=== PATIENT | male | born 1975 ===

== ENCOUNTER 2023-10-28 07:23 | Outpatient (REF) | payer OTHER, SELFPAY ==
--- NOTE | ~2023-10-28 | XR_ITS ---
EXAMINATION: XR PELVIS CLINICAL INFORMATION: Hip pain COMPARISON: None available. TECHNIQUE: AP view of the pelvis. FINDINGS: Upper pelvis is not included. Visualized SI joints within normal limits. Symmetrically appearing superior pubic rami. No acute fracture. Mild left hip joint narrowing with small calcification lateral to the left acetabulum. Advanced right hip joint narrowing sclerosis. Hypertrophic bony changes right greater trochanter. Partial visualization right intramedullary josephine with stabilizing proximal screws. Right hemipelvic phlebolith. XR/XR pelvis 1-2V IMPRESSION: Upper pelvis not visualized. No acute bony pathology. Partial visualization right femoral ORIF.
== END 2023-10-28 07:24 | disposition home or self-care (01) ==
LOC: HO.HOSX 07:23
PROVIDERS: Visit Provider Orthopaedic Surgery
DX: M16.51 Unilateral post-traumatic osteoarthritis, right hip (principal); M17.12 Unilateral primary osteoarthritis, left knee
CPT/HCPCS: 72170; 99202

== ENCOUNTER 2023-10-28 11:07 | Outpatient (AMB) | payer OTHER, SELFPAY ==
--- NOTE | 2023-10-28 11:10 | A.OFFVIS_ITS ---
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 Patient reports that he is havign pain on the lateral aspect and deep in the groin. He broke his femur in 2010 and has IMN done in [place], he bend the josephine in 2010 and had revision done with [facility]. Left knee has been bothersome for many years now, he has decreased mobility and concerns of it bowing. He plays hockey 2-3 times a week, this is aggravating the hip and the knee. He has been working with physical therapy which has improved his symptoms. 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 He complains of pain in his right hip, both the lateral aspect & deep groin. He says this has been present for some time. He also complains of left knee pain, and limited mobility. He is active and plays hockey 2-3x weekly, which aggravates his symptoms. He finds some relief from PT. He has a hx of a right femur IMN in 2010, in [place]. This was followed by a revision done at [facility]. [facility] Medical History (Updated 10/31/23 @ 07:57 by Nikhil Madrigal MD) Localized osteoarthritis of left knee Surgical History (Updated 10/28/23 @ 11:29 by Harper Velázquez CMA) Femur fracture, right Social History (Updated 10/28/23 @ 11:20 by Harper Velázquez CMA) Current occupational status: employed Current occupation: [employer] Review of Systems Const All systems reviewed & are unremarkable except as noted in HPI and below Physical Exam Vital Signs: BMI result Body Mass Index 31.6 Const General: no acute distress, alert and awake Orientation/consciousness: patient oriented x3 HEENT Head: Yes normocephalic and Yes atraumatic Eyes EOM: EOMs intact bilaterally Resp Effort & Inspection: normal respiratory effort and able to speak in complete sentences Cardio Jugular venous distension: no JVD Skin General skin exam: turgor normal Rashes: no rashes Neuro General: patient oriented x3 Extrem Other: + impingement right hip mild Trendelenberg gait Psych Appearance: grossly normal Affect: normal affect Attitude: cooperative Results Reviewed Results Reviewed: I personally reviewed relevant radiographs. 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 MRI ordered for hip and discussed options including hardware removal and arthroplasty. Will see him when he returns from [place] for MRI (2) Localized osteoarthritis of left knee: Code(s): M17.12 - Unilateral primary osteoarthritis, left knee Plan: Left knee OA that is stiff but pain is tolerable. May consider PRP when returns from [place]. Plan Prepared for Nikhil Madrigal MD by Cristi Qureshi, medical radiation dosimetrist, on 10/28/23 at 11:24 AM, EST. Orders: Orders XR pelvis 1-2V 10/28/23 M25.559 - Pain in unspecified hip Coding Level of Care Code Est Pt Level 4 (74085) Diagnoses Post-traumatic osteoarthritis of right hip M16.51 Localized osteoarthritis of left knee M17.12
[2023-10-28 11:15] VITALS: BMI 31.6
== END 2023-10-28 11:50 | disposition home or self-care (01) ==
PROVIDERS: PCP Family Medicine; Visit Provider Orthopaedic Surgery
DX: M16.51 Unilateral post-traumatic osteoarthritis, right hip (principal); M17.12 Unilateral primary osteoarthritis, left knee
CPT/HCPCS: 99203

== ENCOUNTER 2024-01-03 09:28 | Outpatient (AMB) | payer OTHER, SELFPAY ==
--- NOTE | 2024-01-03 09:34 | MHC.OFFVIS ---
Intake Intake Visit Reasons: OV, L knee cortisone injection Intake Note: Janak is a 48 year old male who presents today for a follow up of his left knee OA, he would like to have a cortisone injection in the left knee today. 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 His left knee is not really bothering him at the moment. He is just returning from winter in [place]. He describes pain in his right hip and groin. He plays hockey several times a week and this is tolerable in moderation but easily becomes intolerable. He has in intra medullary josephine in his right femur. [facility] Medical History (Updated 10/31/23 @ 07:57 by Nikhil Madrigal MD) Localized osteoarthritis of left knee Surgical History (Updated 10/28/23 @ 11:29 by Harper Velázquez CMA) Femur fracture, right Social History (Updated 10/28/23 @ 11:20 by Harper Velázquez CMA) Current occupational status: employed Current occupation: [employer] Physical Exam Extrem Other: varus left knee iwth loss of terminal extension but no pain and no effusion Right hip with + impingement test Results Reviewed Results Reviewed: right hip OA with IM nail in place with bony overgrowth over greater trochanter Assessment & Plan Assessment & Plan (1) Post-traumatic osteoarthritis of right hip: Code(s): M16.51 - Unilateral post-traumatic osteoarthritis, right hip Plan: We discussed options. We elected to proceed forward with PRP right hip. We discussed this in detail and will proceed forward and then discuss removal of hardware. I explained the PRP procedure and the I discussed the risks benefits and alternatives including but not limited to the risk of pain, infection, incomplete symptom resolution. He expressed understanding. (2) Localized osteoarthritis of left knee: Code(s): M17.12 - Unilateral primary osteoarthritis, left knee Plan: At this time his left knee is minimally symptomatic. We elected to hold ion injections for now and will focus on hip Coding Level of Care Code Est Pt Level 4 (47680) Diagnoses Post-traumatic osteoarthritis of right hip M16.51 Localized osteoarthritis of left knee M17.12
== END 2024-01-03 11:27 | disposition home or self-care (01) ==
PROVIDERS: PCP Family Medicine; Visit Provider Orthopaedic Surgery
DX: M16.51 Unilateral post-traumatic osteoarthritis, right hip (principal); M17.12 Unilateral primary osteoarthritis, left knee
CPT/HCPCS: 99214

== ENCOUNTER → 2024-01-03 09:28 | Outpatient (BNVA) | payer OTHER, SELFPAY | PROVIDERS: PCP Family Medicine; Visit Provider Orthopaedic Surgery | DX: M17.12 Unilateral primary osteoarthritis, left knee (principal); M16.51 Unilateral post-traumatic osteoarthritis, right hip | CPT/HCPCS: 99212; J0665; J1100 ==

== ENCOUNTER 2024-01-13 09:01 | Outpatient (AMB) | payer OTHER, SELFPAY ==
--- NOTE | 2024-01-13 09:03 | A.OFFVIS_ITS ---
Intake Vital Signs 01/13/24 09:09 Height 5 ft 10 in Weight 220 lb BMI 31.6 Intake Visit Reasons: OV, Injection of left knee cortisone Intake Note: Janak is a 48 year old male who presents today for a follow up of his left knee OA, he would like to have a cortisone injection in the left knee today. Patient reports mild pain with prolonged ambulation. Allergies No Known Allergies Allergy (Verified 01/13/24 09:09) HPI OV, Injection of left knee cortisone HPI Details Janak is a 48 year old male who presents today for a follow up of his left knee OA, he would like to have a cortisone injection in the left knee today. Patient reports mild pain with prolonged ambulation. [facility] Medical History Localized osteoarthritis of left knee Surgical History Femur fracture, right Social History Current occupational status: employed Current occupation: [employer] Physical Exam Vital Signs: BMI result Body Mass Index 31.6 Extrem Other: Left knee with TTP medial joint line Restricted flexion at baseline Office Procedures Joint Injection/Drain Joint Injection/Drain Details: Injected 1 mL of Decadron and 3 mL 1% lidocaine and 3 mL of 0.25% Marcaine. Site was prepped using aseptic technique. Patient tolerated the procedure well. Primary Site: left knee Approach Used: anterolateral Coding - Large joint Procedure code (CPT) selection complete Assessment & Plan Assessment & Plan (1) Localized osteoarthritis of left knee: Code(s): M17.12 - Unilateral primary osteoarthritis, left knee Plan: Left knee OA Injected left knee Coding Level of Care Code Est Pt Level 3 (91606) Diagnoses Localized osteoarthritis of left knee M17.12 CPT Codes Coding - Large joint: 08192 - Large joint ([id number])
[2024-01-13 09:09] VITALS: BMI 31.6
== END 2024-01-13 10:06 | disposition home or self-care (01) ==
PROVIDERS: PCP Family Medicine; Visit Provider Orthopaedic Surgery
DX: M17.12 Unilateral primary osteoarthritis, left knee (principal)
CPT/HCPCS: 20610; 99213

== ENCOUNTER → 2024-01-13 09:01 | Outpatient (BNVA) | payer OTHER, SELFPAY | PROVIDERS: PCP Family Medicine; Visit Provider Orthopaedic Surgery | DX: M17.12 Unilateral primary osteoarthritis, left knee (principal) | CPT/HCPCS: 20610; 99212; J0665; J1100 ==

== ENCOUNTER 2024-01-17 11:44 | Outpatient (AMB) | payer SELFPAY ==
--- NOTE | 2024-01-17 11:46 | A.OFFVIS_ITS ---
Intake Intake Visit Reasons: PRP Right hip with filter Intake Note: This is a 48 year old male who presents for a PRP injection on the right hip. Allergies No Known Allergies Allergy (Verified 01/17/24 11:47) Medication List - Last Reconciled 01/17/24 by Sri Iraheta RN meloxicam 15 mg PO DAILY tamoxifen 20 mg PO DAILY testosterone cypionate (Depo-Testosterone) 100 mg IM Q2W [facility] Medical History Localized osteoarthritis of left knee Surgical History Femur fracture, right Social History Current occupational status: employed Current occupation: [employer] Office Procedures Platelet Rich Plasma Injection PRP Joint Injection Primary Site: other (right hip) XCELL Platelet Plasma - 0232T 60 mL All charges added?: Procedure code (CPT) selection complete Assessment & Plan Assessment & Plan (1) Post-traumatic osteoarthritis of right hip: Code(s): M16.51 - Unilateral post-traumatic osteoarthritis, right hip Plan: Right hip injection Medications: New pregabalin (Lyrica) 75 mg PO BEDTIME 30 days 30 caps 0RF Coding Level of Care Code Procedure Only Diagnoses Post-traumatic osteoarthritis of right hip M16.51 CPT Codes XCELL Kit 60mL ([id number]) XCELL Kit 120mL ([id number])
== END 2024-01-17 13:24 | disposition home or self-care (01) ==
LOC: HO.HOSPRC 11:44
PROVIDERS: PCP Family Medicine; Visit Provider Orthopaedic Surgery
DX: M16.51 Unilateral post-traumatic osteoarthritis, right hip (principal)
CPT/HCPCS: 0232T

== ENCOUNTER → 2024-01-17 11:44 | Outpatient (BNVA) | payer OTHER, SELFPAY | PROVIDERS: PCP Family Medicine; Visit Provider Orthopaedic Surgery ==

== ENCOUNTER 2024-02-14 12:51 | Outpatient (AMB) | payer OTHER, SELFPAY ==
--- NOTE | 2024-02-14 12:51 | MHC.OFFVIS ---
Vital Signs 02/14/24 12:53 Height 5 ft 10 in Weight 220 lb BMI 31.6 Intake Visit Reasons: OV-F/U PRP Right hip on 01/17/24-Discuss surgery Intake Note: Janak is a 48 year old male who presents today for a follow up of his right hip PRP 01/17/24, he reports that he did not have adequate releief and he would like to discuss surgery. Allergies No Known Allergies Allergy (Verified 02/14/24 12:53) HPI HPI OV-F/U PRP Right hip on 01/17/24-Discuss surgery: Details: Irvin is a 48-year-old gentleman with severe right hip osteoarthritis. He also has an IM nail in his right femur after a fracture many years ago. He is active and would like to continue playing hockey but can not because of pain. He underwent a PRP injection approximately 6 weeks ago which was not particularly helpful. [facility] Medical History Localized osteoarthritis of left knee Surgical History Femur fracture, right Social History Current occupational status: employed Current occupation: [employer] Physical Exam Vital Signs: BMI result Body Mass Index 31.6 Const General: cooperative, healthy appearing, no acute distress, well developed and alert HEENT Head: Yes normal to inspection, Yes normocephalic and Yes atraumatic Mouth: moist mucous membranes Eyes General: appearance normal, both eyes and all related structures EOM: EOMs intact bilaterally Chest Other: no audible wheezing. Resp Other: No audible wheezing Effort & Inspection: normal respiratory effort Back/Spine/Pelvis Cervical Spine: normal cervical lordosis Skin General skin exam: no rashes or lesions noted Neuro General: no focal motor deficits Extrem Other: Incision clean dry and intact lateral right proximal and distal femur. Minimal internal rotation and positive impingement test. Psych Appearance: grossly normal and well kempt Mental Status: mental status grossly normal Speech and movement: Normal speech and movement present Affect: normal affect Attitude: cooperative Results Reviewed Results Reviewed: I personally reviewed relevant radiographs. Right hip OA There is a right femoral intramedullary nail likely piriformis entry recon nail in appropriate position with no hardware complications. Assessment & Plan Assessment & Plan (1) Post-traumatic osteoarthritis of right hip: Code(s): M16.51 - Unilateral post-traumatic osteoarthritis, right hip Category: Medical Plan: In order to treat his hip we need to remove the hardware 1st. We discussed this and the timing. (2) Retained orthopedic hardware: Code(s): Z96.9 - Presence of functional implant, unspecified Category: Medical Plan: I recommend removal of hardware. I discussed the risks, benefits and alternatives including, but not limited to, the risk fracture, bleeding, pain, infection. This josephine appears extremely well fixed and he is a very active gentleman so I do think that there may be some difficulty removing the nail especially the distal screw and the proximal screws given the propensity of stripping. I would like to get his op note from surgery before we undergo hardware removal. I explained this to the patient he understands and we will proceed forward accordingly. Coding Level of Care Code Est Pt Level 4 (73706) Diagnoses Post-traumatic osteoarthritis of right hip M16.51 Retained orthopedic hardware Z96.9
[2024-02-14 12:53] VITALS: BMI 31.6
== END 2024-02-14 13:41 | disposition home or self-care (01) ==
PROVIDERS: PCP Family Medicine; Visit Provider Orthopaedic Surgery
DX: M16.51 Unilateral post-traumatic osteoarthritis, right hip (principal); Z96.9 Presence of functional implant, unspecified; Z96.641 Presence of right artificial hip joint
CPT/HCPCS: 99214

== ENCOUNTER → 2024-02-14 12:51 | Outpatient (BNVA) | payer OTHER, SELFPAY | PROVIDERS: PCP Family Medicine; Visit Provider Orthopaedic Surgery | DX: M16.51 Unilateral post-traumatic osteoarthritis, right hip (principal); T14.90XS Injury, unspecified, sequela; Z96.9 Presence of functional implant, unspecified | CPT/HCPCS: 99212 ==

== ENCOUNTER 2024-02-21 10:32 | Outpatient (AMB) | payer OTHER, SELFPAY ==
--- NOTE | 2024-02-21 10:33 | MHC.OFFVIS ---
Intake Visit Reasons: TELE Intake Note: Janak is a 48 year old male who presents today VIA Telephone visit to discuss interventions of his hip. Allergies No Known Allergies Allergy (Verified 02/14/24 12:53) HPI HPI TELE: Details: Irvin is doing very well and has no pain. Given his lack of pain at this time he would like to postpone his removal of hardware surgery. [facility] Medical History Localized osteoarthritis of left knee Surgical History Femur fracture, right Social History Current occupational status: employed Current occupation: [employer] Telehealth Telehealth Platform: Telephone Location of provider rendering services: practice address Location of patient: address on file Patient Identification confirmed using: Name, : Yes Telehealth method: voice only Patient informed of any privacy concerns related to visit: Yes Minutes spent on Phone/Video with Pt.: 10 Assessment & Plan Assessment & Plan (1) Retained orthopedic hardware: Code(s): Z96.9 - Presence of functional implant, unspecified Category: Medical Plan: We will defer removal of hardware until a better time and when he is having more pain. We discussed this. Coding Level of Care Code Tele Est Pt Level 3 (92716) Diagnoses Retained orthopedic hardware Z96.9
== END 2024-02-21 10:34 | disposition home or self-care (01) ==
LOC: HO.HOS 10:33
PROVIDERS: PCP Family Medicine; Visit Provider Orthopaedic Surgery
DX: Z96.9 Presence of functional implant, unspecified (principal)
CPT/HCPCS: 99213

== ENCOUNTER → 2024-02-21 10:32 | Outpatient (BNVA) | payer OTHER, SELFPAY | PROVIDERS: PCP Family Medicine; Visit Provider Orthopaedic Surgery ==

== ENCOUNTER 2024-05-21 07:18 | Outpatient (REF) | payer OTHER, SELFPAY | END 2024-05-21 07:19 | disposition home or self-care (01) | LOC: CF 07:18 | PROVIDERS: Visit Provider Internal Medicine | DX: Z13.89 Encounter for screening for other disorder (principal) ==

== ENCOUNTER 2024-05-28 08:02 | Outpatient (REF) | payer OTHER, SELFPAY | END 2024-05-28 08:03 | disposition home or self-care (01) | LOC: CF 08:02 | PROVIDERS: Visit Provider Internal Medicine | DX: Z13.89 Encounter for screening for other disorder (principal) ==

== ENCOUNTER 2024-05-28 13:05 | Outpatient (AMB) | payer OTHER, SELFPAY ==
--- NOTE | 2024-05-28 13:01 | MHC.OFFVIS ---
Vital Signs 05/28/24 14:07 05/28/24 14:08 Height 5 ft 10 in 5 ft 10 in Weight 220 lb 220 lb BMI 31.6 31.6 BP 150/60 H 138/68 Blood Pressure Location Lt brachial Lt brachial Position Sitting Sitting Respiration 16 16 Pulse 101 H 86 Pulse Source Pulse Oximeter Pulse Oximeter Pulse Oximetry (%) 98 96 Oxygen Delivery Method Room Air Room Air Comment pre-op post-op Intake Visit Reasons: Right hip PRP Allergies No Known Allergies Allergy (Verified 05/28/24 14:08) HPI HPI Right hip PRP: Details: Patient presents for scheduled procedure. Denies any recent cough, cold, infection, fever or other significant changes in medical history since last office visit. [facility] Medical History Localized osteoarthritis of left knee Surgical History Femur fracture, right Social History Current occupational status: employed Current occupation: [employer] Office Procedures Platelet Rich Plasma Injection PRP Joint Injection After informed written consent was obtained, pre-procedure oxygen saturation, heart rate, and blood pressure were recorded. An 18 gauge butterfly needle was used to obtain 51 mL of whole blood from the right antecubital fossa. This was then mixed with 9 mL anticoagulant citrate dextrose solution. The 60 mL mixture was counter balanced to within 1 g and spun at 3500 rpm for 10 minutes. Platelet poor plasma was then drawn using a bench top press model. 6 mL of slightly leukocyte rich PRP was isolated in a 10 cc syringe. Primary Site: other (Right hip) Prep: site was prepped using sterile technique Approach Used: anterior (Ultrasound-guided) Procedure: The patient tolerated the procedure well XCELL Platelet Plasma - 0232T 60 mL All charges added?: Procedure code (CPT) selection complete Assessment & Plan Assessment & Plan (1) Post-traumatic osteoarthritis of right hip: Code(s): M16.51 - Unilateral post-traumatic osteoarthritis, right hip Category: Medical Plan Patient is status post right PRP injection under ultrasound guidance. Patient tolerated procedure well and was discharged home in stable condition with discharge instructions. All questions were answered. We will follow-up via telephone or in clinic to assess response to therapy. A follow-up appointment was made during today's visit. Orders: Orders AMB Platelet Rich Plasma (PRP) Injection Today M16.51 - Unilateral post-traumatic osteoarthritis, right hip Coding Level of Care Code Procedure Only Diagnoses Post-traumatic osteoarthritis of right hip M16.51 CPT Codes XCELL Kit 60mL ([id number])
[2024-05-28 14:07] VITALS: BP 150/60; PULSE 101; RESP 16; O2SAT 98; BMI 31.6
[2024-05-28 14:08] VITALS: BP 138/68; PULSE 86; RESP 16; O2SAT 96; BMI 31.6
== END 2024-05-28 14:24 | disposition home or self-care (01) ==
LOC: HO.PMCPRC 13:05
PROVIDERS: PCP Family Medicine; Visit Provider Internal Medicine
DX: M16.51 Unilateral post-traumatic osteoarthritis, right hip (principal)
CPT/HCPCS: 0232T

== ENCOUNTER 2024-07-08 16:32 | Outpatient (REF) | payer OTHER, SELFPAY ==
--- NOTE | ~2024-07-08 | MR_ITS ---
EXAMINATION: MR HIP WITHOUT CONTRAST, RIGHT CLINICAL INFORMATION: Internal derangement. Right hip pain. COMPARISON: Radiographs dated 07/08/2024. TECHNIQUE: MRI of the right hip was obtained using routine sequences on a high-field strength magnet. FINDINGS: BONES AND ARTICULAR CARTILAGE: Severe osteoarthritis in the right hip is characterized by complete articular cartilage loss at the cephalad aspect of the femoral head and at the acetabular roof, associated with articular cortical remodeling, articular cortical sclerosis, subchondral edema, subchondral cystic change, and marginal osteophytes. The acetabular labrum is degenerated and torn from the roof anteriorly and superolaterally. No avascular necrosis. Hxuc-ds-xqayelsj osteoarthritis in the left hip and pubic symphysis. SI joints appear relatively well preserved. Mild degenerative disc disease in the lumbar spine. Antegrade intramedullary nail and 2 interlocking screws are partially seen within the proximal femur. There is mild osseous fragmentation around the tip of the greater trochanter with adjacent scar tissue. No acute fractures. MUSCLES AND TENDONS: There is a chronic partial tear of the anterior fibers of the gluteus medius tendon near the trochanteric insertion, likely related to the placement of the intramedullary nail. There is no significant muscle atrophy or fatty replacement. Hamstring tendons are intact. The psoas are unremarkable. Chronic core muscle injuries are evident at the pubic symphysis attachment with a chronic high-grade partial tear of the right abductor longus tendon origin. The right rectus abdominis aponeurosis is also likely partially torn as it appears confluent with the stripped, displaced right adductor longus aponeurosis. A similar injury is suspected at the left adductor longus and rectus abdominis muscles with partial ossification of the displaced adductor longus tendon. JOINT FLUID AND BURSAE: Trace joint effusion. No bursitis. LIGAMENTUM TERES: Intact. INTRAPELVIC SOFT TISSUES: Sigmoid diverticulosis. No acute diverticulitis. No acute intrapelvic abnormalities. No adenopathy. MR/MR hip RT wo con IMPRESSION: 1. Severe osteoarthritis in the right hip. 2. Bzrb-gp-qbaihifo osteoarthritis in the left hip and pubic symphysis. 3. Chronic partial tears of the bilateral adductor longus and rectus abdominis aponeuroses at the pubic symphysis, consistent with chronic core muscle injuries. 4. Chronic partial tear of the anterior fibers of the gluteus medius tendon at its insertion related to the femoral intramedullary nail placement. Electronically signed by: Kulwinder Gamboa MD 07/13/2024 11:04 PM EDT RP
== END 2024-07-08 16:33 | disposition home or self-care (01) ==
LOC: HO.MRI 16:32
PROVIDERS: PCP Family Medicine; Visit Provider Orthopaedic Surgery
DX: M16.51 Unilateral post-traumatic osteoarthritis, right hip (principal)
CPT/HCPCS: 73721

== ENCOUNTER 2024-07-22 11:21 | Outpatient (AMB) | payer OTHER, SELFPAY ==
[2024-07-22 11:24] VITALS: BP 143/86; PULSE 99; RESP 15; O2SAT 97; BMI 34.3
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
== END 2024-07-22 11:32 | disposition home or self-care (01) ==
PROVIDERS: PCP Family Medicine; Visit Provider Internal Medicine
DX: M16.51 Unilateral post-traumatic osteoarthritis, right hip (principal)
CPT/HCPCS: 99214

== ENCOUNTER → 2024-07-22 11:21 | Outpatient (BNVA) | payer OTHER, SELFPAY | PROVIDERS: PCP Family Medicine; Visit Provider Internal Medicine | DX: M16.51 Unilateral post-traumatic osteoarthritis, right hip (principal) | CPT/HCPCS: 99212 ==

== ENCOUNTER 2024-08-14 09:10 | Outpatient (AMB) | payer OTHER, SELFPAY ==
--- NOTE | 2024-08-14 09:12 | A.OFFVIS_ITS ---
Vital Signs 08/14/24 09:14 Height 5 ft 10 in Weight 239 lb BMI 34.3 BP 142/96 H Blood Pressure Location Lt brachial Position Sitting Respiration 15 Pulse 101 H Pulse Source Pulse Oximeter Pulse Oximetry (%) 97 Oxygen Delivery Method Room Air Intake Visit Reasons: right hip inj Allergies No Known Allergies Allergy (Verified 08/25/24 07:12) Medication List - Last Reconciled 08/14/24 by Adela Merchant LPN meloxicam 15 mg PO DAILY pregabalin (Lyrica) 75 mg PO BEDTIME 30 days tamoxifen 20 mg PO DAILY testosterone cypionate (Depo-Testosterone) 100 mg IM Q2W HPI HPI right hip inj: Details: 48-year-old male who presents today to the office for a right hip injection. We reached out to Dr. Pitts to discussed intraosseous BMC vs total hip replacement as possible treatment for hip pain. Dr. Pitts is inclined to proceed with hip replacement and deferred intraosseous BMC given the severity of the conditions. He states that his pain has started about a year and half ago. He used to go on biking about two miles a day. Denies any recent cough, cold, infection, fever or other significant changes in medical history since last office visit.? Past procedures 05/28/24: 2nd Right PRP injection under ultrasound guidance: no relief. [facility] Medical History Back pain Arthritis Elevated cholesterol HTN (hypertension) Localized osteoarthritis of left knee Surgical History History of ankle surgery Hx of knee surgery Femur fracture, right Social History Are you a primary healthcare customer service to a significant other at home: No Do you presently have visiting nurse or other home services: No Patient Tobacco Use Status: Never used Tobacco Use of substances other than those prescribed or required for medical reasons: No Have you been hit, kicked, punched, or otherwise hurt by someone within the past year? If so, by whom?: No Are you DNR?: No Advance Directives: No Advance Directives Information Provided: Yes Advance Directives on File: No Recently lost weight without trying: No Eating poorly because of decreased appetite: No Nutrition Risks: No Nutritional Risk Poor oral hygiene: Yes (one crown on front tooth) Current occupational status: employed Current occupation: [employer] Review of Systems Const All systems reviewed & are unremarkable except as noted in HPI and below Physical Exam Vital Signs: Last Vital Signs Pulse 101 H 08/14/24 09:14 Resp 15 08/14/24 09:14 BP 142/96 H 08/14/24 09:14 Pulse Ox 97 08/14/24 09:14 Oxygen Delivery Method Room Air 08/14/24 09:14 BMI result Body Mass Index 34.3 General: Appears afebrile. Alert and oriented. Mood and affect appropriate. Follows and participates in conversation appropriately. Respiratory effort is unlabored. Able to transition from sit to stand unassisted. Ambulates with bilaterally normal heel strike and toe off. Office Procedures AMB Joint Injection/Aspiration Joint Injection/Aspiration Details: Right intra-articular hip injection, US guided Primary Site: other (Right hip) Prep: site was prepped using sterile technique Injected: 10 mg of, Kenalog, with 1 mL of (ropivacaine 0.5%) and in the joint Approach Used: anterolateral Procedure: The patient tolerated the procedure well Coding Details: An ultrasound image of the injection was taken and stored in the permanent record. - Large joint (Right, US guided) Procedure code (CPT) selection complete Results Reviewed Results Reviewed: No imaging is available for review. Assessment & Plan Assessment & Plan (1) Post-traumatic osteoarthritis of right hip: Code(s): M16.51 - Unilateral post-traumatic osteoarthritis, right hip Category: Medical Plan Patient is status post right intraarticular hip injection, US guided. Patient tolerated procedure well and was discharged home in stable condition with discharge instructions.? All questions were answered. Scribed for Dr. Farnsworth by Kin Castillo, hospital medical assistant, on 08/14/2024. I, Dr. Farnsworth, have personally reviewed and agree with the information entered by the scribe. Coding Level of Care Code Est Pt Level 3 (21351) Diagnoses Post-traumatic osteoarthritis of right hip M16.51 CPT Codes Coding - Large joint: 20487 - Large joint ([id number])
[2024-08-14 09:14] VITALS: BP 142/96; PULSE 101; RESP 15; O2SAT 97; BMI 34.3
== END 2024-08-14 09:38 | disposition home or self-care (01) ==
PROVIDERS: PCP Family Medicine; Visit Provider Internal Medicine
DX: M16.51 Unilateral post-traumatic osteoarthritis, right hip (principal)
CPT/HCPCS: 20611

== ENCOUNTER → 2024-08-14 09:10 | Outpatient (BNVA) | payer OTHER, SELFPAY | PROVIDERS: PCP Family Medicine; Visit Provider Internal Medicine | DX: M16.51 Unilateral post-traumatic osteoarthritis, right hip (principal) | CPT/HCPCS: 20611; J2795; J3301 ==

== ENCOUNTER 2024-08-24 14:41 | Outpatient (AMB) | payer OTHER, SELFPAY ==
--- NOTE | 2024-08-24 14:53 | A.OFFVIS_ITS ---
Intake Visit Reasons: Discuss [facility] 08/25/24 Intake Note: Janak is a 48 year old male who presents today for a pre operative appointment to discuss removal of hardware. Allergies No Known Allergies Allergy (Verified 08/25/24 07:12) HPI HPI Discuss [facility] 08/25/24: Details: Irvin has a right IMN in place since 2010 and hip OA. He has been scheduled to undergo removal of hardware. He has groin and hip pain. The hardware needs to be removed in preparation for possible arthroplasty. [facility] Medical History Back pain Arthritis Elevated cholesterol HTN (hypertension) Localized osteoarthritis of left knee Surgical History History of ankle surgery Hx of knee surgery Femur fracture, right Social History Are you a primary home care music therapist to a significant other at home: No Do you presently have visiting nurse or other home services: No Patient Tobacco Use Status: Never used Tobacco Use of substances other than those prescribed or required for medical reasons: No Have you been hit, kicked, punched, or otherwise hurt by someone within the past year? If so, by whom?: No Are you DNR?: No Advance Directives: No Advance Directives Information Provided: Yes Advance Directives on File: No Recently lost weight without trying: No Eating poorly because of decreased appetite: No Nutrition Risks: No Nutritional Risk Poor oral hygiene: Yes (one crown on front tooth) Current occupational status: employed Current occupation: [employer] Physical Exam Const General: cooperative, healthy appearing, no acute distress, well developed and alert HEENT Head: Yes normal to inspection, Yes normocephalic and Yes atraumatic Mouth: moist mucous membranes Eyes General: appearance normal, both eyes and all related structures EOM: EOMs intact bilaterally Chest Other: no audible wheezing. Resp Other: No audible wheezing Effort & Inspection: normal respiratory effort Back/Spine/Pelvis Cervical Spine: normal cervical lordosis Skin General skin exam: no rashes or lesions noted Neuro General: no focal motor deficits Extrem Other: Incision clean dry and intact lateral right proximal and distal femur. Minimal internal rotation and positive impingement test. Psych Appearance: grossly normal and well kempt Mental Status: mental status grossly normal Speech and movement: Normal speech and movement present Affect: normal affect Attitude: cooperative Results Reviewed Results Reviewed: I personally reviewed relevant radiographs. Piriformis hardware in place with one distal and two proximal interlocking screws Assessment & Plan Assessment & Plan (1) Retained orthopedic hardware: Code(s): Z96.9 - Presence of functional implant, unspecified Category: Medical Plan: I recommend removal of hardware right femur. I discussed the risks benefits and alternatives including but not limited to the risk of pain, infection, stiffness, need for further surgery as well as potential medical complications such as blood clots, pulmonary embolism and cardiac complications. (2) Post-traumatic osteoarthritis of right hip: Code(s): M16.51 - Unilateral post-traumatic osteoarthritis, right hip Category: Medical Plan: ISAAC pending GIDEON Coding Level of Care Code Est Pt Level 4 (86061) Diagnoses Retained orthopedic hardware Z96.9 Post-traumatic osteoarthritis of right hip M16.51
== END 2024-08-24 16:08 | disposition home or self-care (01) ==
PROVIDERS: PCP Family Medicine; Visit Provider Orthopaedic Surgery
DX: Z96.9 Presence of functional implant, unspecified (principal); M16.51 Unilateral post-traumatic osteoarthritis, right hip
CPT/HCPCS: 99214

== ENCOUNTER → 2024-08-24 14:41 | Outpatient (BNVA) | payer OTHER, SELFPAY | PROVIDERS: PCP Family Medicine; Visit Provider Orthopaedic Surgery | DX: M16.51 Unilateral post-traumatic osteoarthritis, right hip (principal); Z96.89 Presence of other specified functional implants | CPT/HCPCS: 99212 ==

== ENCOUNTER 2024-08-25 06:57 | Day surgery (SDC) | payer OTHER, SELFPAY ==
[2024-08-20 11:48] VITALS: BMI 33.7
--- NOTE | 2024-08-20 14:57 | P.CONAN_ITS ---
Documented by User: Francia Geiger NP 08/20/24 14:58 HPI - Anesthesia Eval Consult details Narrative: 48yo M for Right Hip Removal Orthopedic Hardware (josephine and screws removal) No CP/SOB with playing hockey PMFSH Active Problems Active Problems: All Active Problems Retained orthopedic hardware (Acute) Post-traumatic osteoarthritis of right hip (Acute) Localized osteoarthritis of left knee (Acute) Past Medical History Medical History Back pain Arthritis Elevated cholesterol HTN (hypertension) Localized osteoarthritis of left knee Surgical History Surgical History History of ankle surgery Hx of knee surgery Femur fracture, right Social History Social History Are you a primary patient care representative to a significant other at home: No Do you presently have visiting nurse or other home services: No Patient Tobacco Use Status: Never used Tobacco Use of substances other than those prescribed or required for medical reasons: No Have you been hit, kicked, punched, or otherwise hurt by someone within the past year? If so, by whom?: No Are you DNR?: No Advance Directives: No Advance Directives Information Provided: Yes Advance Directives on File: No Recently lost weight without trying: No Eating poorly because of decreased appetite: No Nutrition Risks: No Nutritional Risk Poor oral hygiene: Yes (one crown on front tooth) Current occupational status: employed Current occupation: [employer] [place] Allergies Allergy/AdvReac Type Severity Reaction Status Date / Time No Known Allergies Allergy Verified 08/25/24 07:12 Home Medications ?Medication ?Instructions ?Recorded ?Confirmed ?Last Taken ?Type meloxicam 15 mg tablet 15 mg PO DAILY 10/28/23 08/20/24 08/18/24 History tamoxifen 20 mg tablet 20 mg PO DAILY 10/28/23 08/20/24 08/24/24 History testosterone cypionate 200 mg/mL 100 mg IM QWEEK 10/28/23 08/20/24 Unknown History intramuscular oil (Depo-Testosterone) lisinopril 10 1 tab PO DAILY 08/20/24 08/20/24 08/24/24 History mg-hydrochlorothiazide 12.5 mg tablet minoxidil 2.5 mg tablet 2.5 mg PO DAILY 08/20/24 08/20/24 08/24/24 History Exam Height,Weight and Vital Signs: Height 5 ft 10 in Weight 106.594 kg Assessment and Plan Assessment Anesthesia Assessment: Chart Reviewed Documented by User: Madison Montanez MD 08/25/24 09:05 [facility] Past Medical History Medical History Back pain Arthritis Elevated cholesterol HTN (hypertension) Localized osteoarthritis of left knee Family History Family history of problems with anesthesia: No Surgical History Surgical History History of ankle surgery Hx of knee surgery Femur fracture, right History of Problems with Anesthesia: No Social History Social History Are you a primary patient care representative to a significant other at home: No Do you presently have visiting nurse or other home services: No Patient Tobacco Use Status: Never used Tobacco Use of substances other than those prescribed or required for medical reasons: No Have you been hit, kicked, punched, or otherwise hurt by someone within the past year? If so, by whom?: No Are you DNR?: No Advance Directives: No Advance Directives Information Provided: Yes Advance Directives on File: No Recently lost weight without trying: No Eating poorly because of decreased appetite: No Nutrition Risks: No Nutritional Risk Poor oral hygiene: Yes (one crown on front tooth) Current occupational status: employed Current occupation: [employer] [place] Allergies Allergy/AdvReac Type Severity Reaction Status Date / Time No Known Allergies Allergy Verified 08/25/24 07:12 Home Medications ?Medication ?Instructions ?Recorded ?Confirmed ?Last Taken ?Type meloxicam 15 mg tablet 15 mg PO DAILY 10/28/23 08/20/24 08/18/24 History tamoxifen 20 mg tablet 20 mg PO DAILY 10/28/23 08/20/24 08/24/24 History testosterone cypionate 200 mg/mL 100 mg IM QWEEK 10/28/23 08/20/24 Unknown History intramuscular oil (Depo-Testosterone) lisinopril 10 1 tab PO DAILY 08/20/24 08/20/24 08/24/24 History mg-hydrochlorothiazide 12.5 mg tablet minoxidil 2.5 mg tablet 2.5 mg PO DAILY 08/20/24 08/20/24 08/24/24 History Exam Airway Mallampati Class: II TM Dist: >3cm Neck ROM: Full Heart: rrr Lungs: cta Assessment and Plan Assessment Anesthesia Assessment: Anesthesia Plan Discussed Final Anesthetic Review Family History of Problems with Anesthesia: No History of Problems with Anesthesia: No NPO: Yes ASA Class: II (htn) Final Preanesthetic Review: No Changes in Pt Med Stat, Meds/Allgs Chart Reviewed, Consent Obtained/Reviewed and Anes Risks/Benef Reviewed Patient Risk: Low Procedure Risk: Intermediate Anesthetic Plan Anesthetic Plan: GA Disposition: Standard PACU
[2024-08-25] VITALS (16 sets, daily range): BP systolic 114–141; BP diastolic 58–82; PULSE 93–115; RESP 16–18; TEMP 36.2–36.8; O2SAT 89–99; BMI 34.4
[2024-08-25] MEDS: Lactated Ringers 1,000 ML 100 ML IVCONT (07:21)
--- NOTE | 2024-08-25 07:44 | MHC.SHP ---
Pre-Procedural Eval Section A - 24 Hr Update-Section A only Date of Service: 08/25/24 The patient is an INPATIENT: No Changes since office visit: No Cold of Flu in the past 2 weeks, No New Medical Problems, No Changes in Medication and No Patient answered all questions The patient has been examined within 24 hours of the surgical procedure. The History & Physical has been completed within 30 days and I have reviewed it.: Yes Section B - Complete if H&P > 30 days Chief Complaint: Presence of functional implant, unspecified Allergies: Allergies Allergy/AdvReac Type Severity Reaction Status Date / Time No Known Allergies Allergy Verified 08/25/24 07:12 Plan I have reviewed the history and physical and performed a pertinent physical examination on my patient. No changes have occurred unless specified. Time Spent With Patient Time: Total time managing care of this patient today ____ minutes.
--- NOTE | 2024-08-25 13:04 | P.BOP_ITS ---
Brief Operative Note Date of Service: 08/25/24 Pre-op diagnosis: Retained ortho hardware right femur Post-op diagnosis: same Procedure: GIDEON right femur Surgeon: Nikhil Madrigal MD Anesthesia: local Was an Precision Agronomist used for this Procedure?: Yes Precision Agronomist: Mich Logan Estimated blood loss (mL): 200 IV fluids (mL): 1,000 Pathology: none sent Condition: stable Disposition: PACU
[2024-08-25] MEDS: ondansetron HCL 4 MG/2 ML VIAL IVPUSH (15:41)
[2024-08-25] MEDS: Haloperidol Lactate 5 MG/ML VIAL 1 MG IVPUSH (16:02)
--- NOTE | 2024-09-02 09:20 | W.PM.OPN ---
Operative Note Operative Note Date of Service: 08/25/24 Narrative: Date of Service: 08/25/24 Pre-op diagnosis: Retained ortho hardware right femur Post-op diagnosis: same Procedure: GIDEON right femur Surgeon: Nikhil Madrigal MD Anesthesia: local Was an Column Precaster used for this Procedure?: Yes Column Precaster: Mich Logan Estimated blood loss (mL): 200 IV fluids (mL): 1,000 Pathology: none sent Condition: stable Disposition: PACU Procedure in detail: Patient was brought to the operating room and placed supine on the [place] table. He was prepped and draped in standard sterile fashion and a time out was called to identify proper site, proper procedure and IV antibiotics per weight were administered. I began by making an incision over the previous surgical incision. I started off with the distal screw. A [employer] screwdriver was placed malleted it in and then the screw was removed without complication. The bone had grown over it quite a bit and it was difficult but did not strip and was removed entirely. I then repeated this process with the 2 proximal screws and was able to remove them successfully. I then turned my attention to the nail. A small incision was made over the prior incision proximal to the greater trochanter. A guidewire was placed into the nail and then a flexible Reamer was placed over the wire to open up the access to the proximal aspect of the nail. Care was taken to avoid the abductor tendons. I then placed a [place] tree and threaded this into the nail and through a combination of back slapping and mallet in I was able to remove the nail. Final radiographs were taken and the bone was intact with no complications evident. The screw holes and extraneous bone were debrided with a currette and rongeur. I then irrigated copiously and closed with absorbable suture and lucas. Local anesthetic was administered before and after incision. The patient was placed in sterile dressings, extubated and brought to the recovery room in stable condition.
== END 2024-08-25 17:22 | disposition home or self-care (01) ==
PROVIDERS: PCP Family Medicine; Visit Provider Orthopaedic Surgery
PROC: (CPT 20680; principal; 2024-08-25 09:30)
DX: M25.551 Pain in right hip (principal); Z47.2 Encounter for removal of internal fixation device; M16.51 Unilateral post-traumatic osteoarthritis, right hip; Z87.81 Personal history of (healed) traumatic fracture
CPT/HCPCS: 20680; C1713; J0131; J0690; J1100; J1171; J1630; J2371; J2405; J2704; J2795; J3010

== ENCOUNTER → 2024-08-25 06:57 | Outpatient (BNV) | payer OTHER, SELFPAY | PROVIDERS: PCP Family Medicine; Visit Provider Orthopaedic Surgery | DX: T84.84XA Pain due to internal orthopedic prosthetic devices, implants and grafts, initial encounter (principal) | CPT/HCPCS: 20680 ==

== ENCOUNTER 2024-09-01 12:45 | Outpatient (AMB) | payer OTHER, SELFPAY ==
--- NOTE | 2024-09-01 12:47 | A.OFFVIS_ITS ---
Intake Visit Reasons: PO RT Hip GIDEON 08/25/24 NE-eval for blood clot Intake Note: Janak is a 48 year old male who presents today for a blood clot evaluation s/p right hip GIDEON 08/25/24 NE. Patient states that his pain started after surgery. He mentions that he is unable to walk properly with the pain. Patient also informed me that he noticed a rash on the lateral aspect of his knee, which showed up after surgery. Allergies No Known Allergies Allergy (Verified 09/01/24 12:55) HPI HPI PO RT Hip GIDEON 08/25/24 NE-eval for blood clot: Details: 48-year-old male who presents in the office today 7 days status post retained orthopedic hardware in the right hip, which was performed on 08/25/[address] Madrigal. While in the office today, the patient presents today for an evaluation of blood clot post-op. He reports he started to experience pain after the surgery. He is unable to walk properly due to pain. He also informed me that he noticed a rash on the lateral aspect of his knee that developed after surgery. [facility] Medical History Back pain Arthritis Elevated cholesterol HTN (hypertension) Localized osteoarthritis of left knee Surgical History History of ankle surgery Hx of knee surgery Femur fracture, right Social History Are you a primary career development consultant to a significant other at home: No Do you presently have visiting nurse or other home services: No Patient Tobacco Use Status: Never used Tobacco Current occupational status: employed Current occupation: [employer] Review of Systems Const All systems reviewed & are unremarkable except as noted in HPI and below Physical Exam Const General: cooperative, healthy appearing and no acute distress Resp Effort & Inspection: normal respiratory effort and able to speak in complete sentences Cardio Rate: regular rate Peripheral pulses: Peripheral pulses 2+ throughout GI Palpation (GI): Soft to palpation Skin Lesions: no lesions Rashes: no rashes Extrem Other: Right hip: Incision sites are clean, dry and intact. Annika intact. There is a significant amount of ecchymosis surrounding the incision sites. Negative calf squeeze. Negative Brandon?s. Sensation is intact. Pedal pulse is intact. Assessment & Plan Assessment & Plan (1) Retained orthopedic hardware: Code(s): Z96.9 - Presence of functional implant, unspecified Category: Medical (2) Post-traumatic osteoarthritis of right hip: Code(s): M16.51 - Unilateral post-traumatic osteoarthritis, right hip Category: Medical Plan Mr. Israel is a 48-year-old male who presents in the office today 7 days status post retained orthopedic hardware in the right hip, which was performed on 08/25/[address] Madrigal. While in the office today, the patient presents today for an evaluation of blood clot post-op. He reports he started to experience pain after the surgery. He is unable to walk properly due to pain. He also informed me that he noticed a rash on the lateral aspect of his knee that developed after surgery. I have placed an order for a STAT ultrasound of the right lower extremity and will send to rule out DVT. Out of abundance of caution, the patient will be sent for a ultrasound. Follow-up will be at his normally scheduled appointment, or sooner if needed. Orders: Orders US venous duplex LE RT Today M79.661 - Pain in right lower leg, M79.89 - Other specified soft tissue disorders Patient Instructions: Scribed by Marcie Patel medical lab technician, for Laly Perkins PA-C on at 1 pm EST. Coding Level of Care Code Global (00302) Diagnoses Retained orthopedic hardware Z96.9 Post-traumatic osteoarthritis of right hip M16.51
== END 2024-09-01 14:07 | disposition home or self-care (01) ==
PROVIDERS: PCP Family Medicine; Visit Provider Physician Assistant
DX: Z96.9 Presence of functional implant, unspecified (principal); M16.51 Unilateral post-traumatic osteoarthritis, right hip
CPT/HCPCS: 99024

== ENCOUNTER → 2024-09-01 12:45 | Outpatient (BNVA) | payer OTHER, SELFPAY | PROVIDERS: PCP Family Medicine; Visit Provider Physician Assistant ==

== ENCOUNTER 2024-09-01 13:44 | Outpatient (REF) | payer OTHER, SELFPAY ==
--- NOTE | ~2024-09-01 | US_ITS ---
EXAMINATION: US TRIPLEX LOWER EXTREMITY, RIGHT CLINICAL INFORMATION: Pain in the right leg COMPARISON: None available. TECHNIQUE: Color-flow triplex imaging with spectral analysis and compression Doppler were performed on the right lower extremity. FINDINGS: Respiratory variation, normal compression and augmented flow are noted throughout the right lower extremity. The visualized common femoral vein, superficial femoral vein, profunda femoral vein, popliteal vein and midcalf peroneal venous segments show no evidence of deep venous thrombosis. There is acute occlusive thrombus in the posterior tibial veins. There is no Hinton's cyst. US/US venous duplex LE RT IMPRESSION: Acute occlusive thrombus in the posterior tibial veins. Electronically signed by: Juli Calvillo MD 09/01/2024 03:54 PM EST
== END 2024-09-01 13:45 | disposition home or self-care (01) ==
LOC: HO.US 13:44
PROVIDERS: PCP Family Medicine; Visit Provider Physician Assistant
DX: M79.661 Pain in right lower leg (principal); R60.0 Localized edema
CPT/HCPCS: 93971; 99212

== ENCOUNTER 2024-09-07 15:04 | Outpatient (AMB) | payer OTHER, SELFPAY ==
--- NOTE | 2024-09-07 15:06 | MHC.OFFVIS ---
Intake Visit Reasons: PO RT Hip GIDEON 08/25/24 NE Intake Note: Janak is a 48 year old male who presents today for a post op appointment s/p right hip GIDEON 08/25/24 NE. Patient reports he is having pain and he notices that his pain is moving down to his knee. Allergies No Known Allergies Allergy (Verified 09/07/24 15:11) Medication List - Last Reconciled 09/07/24 by Mich Logan PA-C celecoxib (Celebrex) 200 mg PO BID 30 days enoxaparin (Lovenox) 110 mg (1.1 mL) subcut Q12H 14 days hydrocodone-acetaminophen 5-325 mg 1 tab PO Q8H PRN 7 days lisinopril-hydrochlorothiazide 10-12.5 mg 1 tab PO DAILY meloxicam 15 mg PO DAILY minoxidil 2.5 mg PO DAILY oxycodone-acetaminophen 5-325 mg (Percocet) 1 tab PO Q8H PRN 7 days tamoxifen 20 mg PO DAILY testosterone cypionate (Depo-Testosterone) 100 mg IM QWEEK HPI HPI PO RT Hip GIDEON 08/25/24 NE: Details: 48-year-old male who returns to the office today for post-op right hip GIDEON, 08/25/[address] Madrigal. He continues to have pain in his right hip that radiates down to his knee. [facility] Medical History Back pain Arthritis Elevated cholesterol HTN (hypertension) Localized osteoarthritis of left knee Surgical History History of ankle surgery Hx of knee surgery Femur fracture, right Social History Are you a primary care coordination manager to a significant other at home: No Do you presently have visiting nurse or other home services: No Patient Tobacco Use Status: Never used Tobacco Current occupational status: employed Current occupation: [employer] Review of Systems Const All systems reviewed & are unremarkable except as noted in HPI and below Physical Exam Extrem Other: Right hip: Incision clean, dry and intact. No redness or drainage. No pain with hip flexion. Mild discomfort with ROM of hip. Calf supple, mild tenderness. NVI. Assessment & Plan Assessment & Plan (1) Retained orthopedic hardware: Code(s): Z96.9 - Presence of functional implant, unspecified Category: Medical (2) Post-traumatic osteoarthritis of right hip: Code(s): M16.51 - Unilateral post-traumatic osteoarthritis, right hip Category: Medical Plan Sutures removed today, steri strips applied. He will continue with Eliquis for his DVT. He is leaving for [place] later today and he is driving. I encouraged he gets out of his vehicle every 2-3 hours for ambulation. He will continue with gait training and strengthening exercises while in [place]. I would like to see him back in 6 weeks to plan his ISAAC, sooner if needed. Medications: New enoxaparin (Lovenox) 110 mg (1.1 mL) subcut Q12H 15.4 mL 1RF 7 days I82.401 - Acute embolism and thrombosis of unspecified deep veins of right lower extremity Patient Instructions: Scribed for Mich Logan PA-C, by Jasen Gomes medical practice administrator, on 09/07/2024 at 2:45 PM EST.? I, Mich Logan PA-C, have personally reviewed and agree with the information entered by the scribe. Coding Level of Care Code Global (46408) Diagnoses Retained orthopedic hardware Z96.9 Post-traumatic osteoarthritis of right hip M16.51
== END 2024-09-07 15:35 | disposition home or self-care (01) ==
PROVIDERS: PCP Family Medicine; Visit Provider Physician Assistant
DX: Z96.9 Presence of functional implant, unspecified (principal); M16.51 Unilateral post-traumatic osteoarthritis, right hip
CPT/HCPCS: 99024

== ENCOUNTER → 2024-09-07 15:04 | Outpatient (BNVA) | payer OTHER, SELFPAY | PROVIDERS: PCP Family Medicine; Visit Provider Physician Assistant | DX: M16.51 Unilateral post-traumatic osteoarthritis, right hip (principal); I82.401 Acute embolism and thrombosis of unspecified deep veins of right lower extremity; Z47.89 Encounter for other orthopedic aftercare; Z96.9 Presence of functional implant, unspecified | CPT/HCPCS: 99212 ==

== ENCOUNTER → 2024-12-15 10:43 | Outpatient (BNVA) | payer OTHER, SELFPAY | PROVIDERS: PCP Family Medicine | DX: Z01.818 Encounter for other preprocedural examination (principal) ==

== ENCOUNTER → 2024-12-15 12:37 | Outpatient (BNV) | payer OTHER, SELFPAY | PROVIDERS: PCP Family Medicine; Visit Provider Internal Medicine | DX: Z01.810 Encounter for preprocedural cardiovascular examination (principal) | CPT/HCPCS: 93010 ==

== ENCOUNTER 2024-12-28 12:33 | Outpatient (REF) | payer OTHER, SELFPAY ==
--- NOTE | ~2024-12-28 | US_ITS ---
EXAMINATION: US TRIPLEX LOWER EXTREMITY, BILATERAL CLINICAL INFORMATION: Occlusive thrombosis in the right posterior tibialis vein. COMPARISON: September 01, 2024. TECHNIQUE: Color-flow triplex imaging with spectral analysis and compression Doppler were performed on the bilateral lower extremities. FINDINGS: Respiratory variation, normal compression and augmented flow demonstrated throughout the interrogated the common femoral veins, superficial femoral veins, profunda veins, popliteal, peroneal and greater saphenous veins both lower extremities. Normal compressibility and respiratory variation within limitation of the left posterior tibialis vein. There is an occlusive thrombus in the right posterior tibialis vein, chronic/old. There is no Hinton's cyst. US/US venous duplex LE BI IMPRESSION: No acute deep venous thrombosis, left lower extremity. Persistent chronic/old occlusive thrombus right posterior tibialis vein. Electronically signed by: Byron Beltran MD 12/28/2024 01:25 PM EDT
== END 2024-12-28 12:34 | disposition home or self-care (01) ==
LOC: HO.US 12:33
PROVIDERS: PCP Family Medicine; Visit Provider Family Medicine
DX: R22.43 Localized swelling, mass and lump, lower limb, bilateral (principal); R79.1 Abnormal coagulation profile
CPT/HCPCS: 93970

== ENCOUNTER → 2024-12-28 12:43 | Outpatient (BNV) | payer OTHER, SELFPAY | PROVIDERS: PCP Family Medicine; Visit Provider Radiology Diagnostic Radiology | DX: I82.541 Chronic embolism and thrombosis of right tibial vein (principal) | CPT/HCPCS: 93970 ==

== ENCOUNTER 2025-01-07 08:21 | Outpatient (REF) | payer OTHER, SELFPAY ==
--- NOTE | ~2025-01-07 | XR_ITS ---
CLINICAL HISTORY: M25.559 - Pain in unspecified hip 3 view, pelvis and right hip Comparison: 10/28/2023 Findings: No acute fracture or dislocation. There are severe changes of right hip joint osteoarthritis. The soft tissues are unremarkable. IMPRESSION: No acute findings. This document has been electronically signed by: Tom Staton MD on 01/08/2025 08:36:37
--- OUTSIDE RECORDS SUMMARY | 2025-01-07 08:26 | XMS_ITS | Clinical Summary ---
Author Organization [employer] [facility] [employer] Address [address] [facility] [place] [address] Care Team Providers Care Hat Band Attacher Name Role Phone Pcp, No Primary Care Provider [phone] Allergies No known active allergies Medications Eliquis [...] TABLET BY MOUTH EVERY DAY 4 Active Social History Tobacco Use Types Packs/Day Years [...] Adults 18 yrs or above (or HM Modifier)([facility]) 1991 Hepatitis C Virus Infection in Adolescents and Adults: Screening (or Modifier) ([facility]) 1991 SDOH Screening Reminder: Dia vargas for all adults ([facility]) 1991 DTaP/Tdap/Td Vaccines ([facility]) (1 - Tdap) 1992 Lipid Screening: Every 5 yrs for Men aged 35+ (or HM Modifier) ([facility]) 2009 Colorectal Cancer Screening 45 -75 Yrs (or HM Modifier) 2018 Colorectal Cancer: FLEXIBLE SIGMOIDOSCOPY Screening every 5 yrs 2018 Colorectal Cancer: Fecal Immunochemical Test (FIT) Annually [facility] 2018 Colorectal Cancer: High-sens itivity gFOBT Screening Annually [facility] 2018 Colorectal Cancer: Stool Col oguard Screening every 3 yrs 2018 Colorectal Cancer:CT Colonog rubi Screening every 5 yrs 2018 Zoster/Shingles Vaccine Seri es Screening: Adults aged 18+ yrs (or HM Modifiers)([facility]) (1 of 2) 2023 Flu Vaccination: Yearly for ages 18mos through 64 years (or Modifier)([facility]) 05/07/2024 COVID-19 Vaccine Screening: Initial Series and Booster Status ([facility]) (2023- season) 2024 Pneumococcal Vaccination Scr eening: Pts 0-19 & 19-49 yrs of age ([facility]) Aged Out No longer eligible b ased on patient's age to complete this topic Medical Devices Not on file Care Teams Hat Band Attacher Relationship Specialty Start Date End Date Pcp, No PCP - General Family Medicine 09/19/24
--- OUTSIDE RECORDS SUMMARY | 2025-01-07 08:26 | XMS_ITS | Data Portability ---
Author Organization [place] - [facility], [facility]- Address [address] [place] [address] Assessment No assessment recorded. Plan of Treatment Reminders Order Date Submit Date Provider Last Modified By Organization Details Last Modified Time Details Appointments None record ed. Lab None record ed. Referral None record ed. Procedures None record ed. Surgeries None record ed. Imaging None record ed. Medication Orders None record ed. Patient TargetsNo targets recorded. Patient Instructions Encounter Date Encounter Id Patient Instructions Last Modified By Organization Details Last Modified Time 03/16/2019 [id number] knee arthritis: care instructions [email or web address] Not available 03/16/2019 13:10:21 X-rays confirm a tricompartment osteoarthritis, which is quite severe given his young age. There are two metallic suture anchors as well. At this time, from a surgical perspective, the only surgical intervention that we would consider would be a knee replacement. He should hold off on that for as long as possible. He is not describing a tremendous amount of pain or discomfort at this time. It is more of intermittent swelling and stiffness to the knee. At this time, we have gone over treatment options for him, which would include Zilretta, viscosupplementati on, PRP, stem cells various options and our advice given his minimal pain today is to watch this for as long as possible. chad Not available 03/18/2019 11:46:55 Reason for Referral None Reported. Results Created Date Observation Date Name Description Value Unit Range Abnormal Flag Note LastModifiedBy Organization Detail LastModifiedTime 02/24/20 16 09/09/2007 MRI, pelvi s No observ ation record ed. [email or web address] Not Available 02/23 12:46:31 02/24/20 16 06/13/2006 MRI, knee No observ ation record ed. [email or web address] Not Available 02/23 12:47:25 03/19/20 19 12/29/2018 XR, knee, 3 view No observ ation record ed. [email or web address] Not Available 2018 14:00:55 Result Notes None recorded. Problems Name Problem SNOMED Code Status Onset Date Resolution Date Notes Provider Name and Address Organization Details Recorded Time Joint pain in ankle and foot Active Not Available [facility] 3 03:01:57 Hip pain 31981897 Active Not Available [facility] 3 03:01:57 Inguinal hernia 272988554 Active Not Available [facility] 3 03:01:57 Knee pain Active Not Available [facility] 3 03:01:57 Contusion of lower limb 33171143 Active Not Available [facility] 3 03:01:57 Closed fracture of femur 14828475 Active Not Available [facility] 3 03:01:57 Problem Notes None recorded. Procedures Surgical History None recorded. Imaging Results Imaging Date Name Status LastModified by Organiz ation Details LastModified Time 09/09/2007 MRI, pelvis completed Information n ot available 02/24/2016 12:46:31 06/13/2006 MRI, knee completed Information no t available 02/24/2016 12:47:25 12/29/2018 XR, knee, 3 view completed Information not available 03/19/2019 14:00:55 Procedure Notes None recorded. Medical Equipment None Reported. Allergies No known drug allergies Medications Name Sig Start Date Stop Date Status Note LastModified by Organization Details LastModified Time cetirizine 10 mg tablet TAKE 1 TABLET BY MOUTH EVERY DAY active Not Available Not Available No t Available ibuprofen 800 mg tablet TAKE 1 TABLET BY MOUTH 3 TIMES A DAY NEEDED WITH FOOD OR MILK active Not Available Not Available No t Available valacyclovir 1 gram tablet TAKE 1 TABLET BY MOUTH TWICE A DAY FOR 10 DAYS active Not Available Not Available No t Available meloxicam 15 mg tablet TAKE 1 TABLET BY MOUTH EVERY DAY active Not Available Not Available No t Available testosterone cypionate 100 mg/mL intramuscula r oil active Not Available Not Available Not Available triamcinolon e acetonide 0.1 % topical cream 1 APPLICATION ON ABDOMIN TWICE A DAY EXTERNALLY active Not Available Not Available N ot Available tamoxifen 10 mg tablet TAKE 1 TABLET BY MOUTH EVERY DAY active Not Available Not Available No t Available benzonatate 100 mg capsule TAKE 1 CAPSULE BY MOUTH THREE TIMES A DAY FOR 10 DAYS active Not Available Not Available Not Available naproxen sodium 550 mg tablet active Not Available Not Available No t Available testosterone cypionate 200 mg/mL intramuscula r oil INJECT 1ML ONCE A WEEK active Not Available Not Available Not Available doxycycline hyclate 100 mg tablet TAKE 1 TABLET BY MOUTH TWICE A DAY active Not Available Not Available No t Available finasteride 5 mg tablet TAKE 1 TABLET BY MOUTH EVERY DAY active Not Available Not Available No t Available BD Safety-Kimi Detachable Needle 3 mL 23 gauge x 1 syringe USE DIRECTED ONCE A WEEK active Not Available Not Available Not Available Vitals Date Recorded Body height Body mass index (BMI) Body weight Provider Name and Address Organization Details Last Updated DateTime 03/16/2019 180.34 cm 33.5 kg/m2 559683.17 g Shawna Shiela [facility] 03/16/2019 12:46:22 Social History Question Answer Notes LastModified by Organizat ion Details LastModified Time Tobacco Smoking Status Never Smoker Shawna Kuo null, [facility] 03/19/2019 13:56:20 What Is Your Level Of Alcohol Consumption? None Information not available 03/19/2019 Auto Related Injury? No Information not available 03/19/2019 Are You Currently Employed? Yes Information not available 03/19/2019 What Was The Date Of Your Most Recent Tobacco Screening? 03/19/2019 Information not available 04/30/2019 If Injured, Is Litigation Ongoing? No Information not available 03/19/2019 Work Related Injury? No Information not available 03/19/2019 Sex: Unknown Functional Status None recorded. Mental Status None recorded. Family History Nothing Reported. Medical History Condition Response HIV or AIDS N Coronary Artery Disease N Gout N Migraines N Thyroid Problems N Lung Disease N Depression N Blood Clots N Pacemaker N Anemia N Heart Attack ([place]) N Ulcers N Anxiety Disorder N Diabetes N Bleeding Disorder N Arthritis N Seizures/Epilepsy N Tuberculosis N Cancer N Stroke N Asthma N Leg or Foot Ulcers N Peripheral Vascular Disease N GERD/Reflux N Hepatitis N Liver Disease N Heart Disease N Rheumatoid Arthritis N Pulmonary Embolism N Hypertension N Osteoporosis N Kidney Disease N Past Encounters Encounter ID Performer Location Encounter Start Date Encounter Closed Date Diagnosis/Indication Diagnosis SNOMED-CT Code Diagnosis ICD10 Code Diagnosis Note [id number] [place] [address] 09/15/2007 13:19:40 09/15/2007 13:29:35 [id number] [place] [id number] 09/05/2007 09:34:31 09/05/2007 09:58:49 [id number] [place] [id number] 04/26/2008 13:16:04 04/26/2008 13:44:53 [id number] [place] [id number] 04/11/2009 14:58:41 04/11/2009 15:15:30 [id number] [place] [id number] 12/16/2009 13:19:42 12/16/2009 13:52:53 [id number] [place]AH [place] [address] 01/13/2010 13:38:50 01/13/2010 14:01:35 [id number] SARAH [place] [address] 02/06/2010 14:01:34 02/06/2010 14:32:40 [id number] Herson Kwong MD SARAH [facility] [address] [place] [address] 03/16/2019 12:45:14 03/16/2019 13:13:02 Osteoarthritis of knee [id number] M17.12 Health Concerns Section Related Observation LastModified by Organization Detai ls LastModified Time None Recorded Concern Status LastModified by Organization Details LastModified Time None Recorded Advance Directives Directive None Recorded Payers Encounter Date Sequence Insurance Name Policy Number Policy Reed Covered Member ID Reed Member ID Guarantor Name 04/11/2009 1 [place] [id number] Janak Del [place] Lindy [id number] Janak Lindy 12/16/2009 1 [place] [id number] Janak Del [place] Lindy [id number] Janak Lindy 01/13/2010 1 [place] [id number] Janak Israel [id number] Janak Israel 02/06/2010 1 [facility]: [facility] [id number] Janak Israel [id number] Janak Israel 03/16/2019 1 *SELF PAY* Cesar Israel Notes Date Note Type Note Provider Name and Address Organization Details Recorded Time 03/16/2019 text/html CHIEF COMPLAINT: LEFT KNEE PAIN We are seeing Janak today. He actually had surgery with us initially for his multi ligament injury to the knee. He had a repeat injury, but had surgery with Dr. Rubin and has been complaining of pain, discomfort, swelling and stiffness to his knee on a routine regular basis and is here today for evaluation. He has X-rays in hand as well. He has had previous cortisone shot and is looking for various treatment options for his undelrying osteoarthritis. Herson Kwong MD [address] [place] [address], [id number], [place] - [facility] 03/19/2019 07:36:58
== END 2025-01-07 08:22 | disposition home or self-care (01) ==
LOC: HO.HOSX 08:21
PROVIDERS: Visit Provider Orthopaedic Surgery
DX: M25.559 Pain in unspecified hip (principal)
CPT/HCPCS: 73502

== ENCOUNTER 2025-01-07 09:03 | Outpatient (AMB) | payer OTHER, SELFPAY ==
--- OUTSIDE RECORDS SUMMARY | 2025-01-07 09:17 | XMS_ITS | Clinical Summary ---
Author Organization [employer] [facility] [employer] Address [address] [facility] [place] [address] Care Team Providers Care Manager Of Broadcast Content Name Role Phone Pcp, No Primary Care Provider [phone] Allergies No known active allergies Medications Eliquis [...] Adults 18 yrs or above (or HM Modifier)([facility]) 1991 Hepatitis C Virus Infection in Adolescents and Adults: Screening (or Modifier) ([facility]) 1991 SDOH Screening Reminder: Dia vargas for all adults ([facility]) 1991 DTaP/Tdap/Td Vaccines ([facility]) (1 - Tdap) 1992 Lipid Screening: Every 5 yrs for Men aged 35+ (or HM Modifier) ([facility]) 2009 Colorectal Cancer Screening 45 -75 Yrs (or HM Modifier) 2018 Colorectal Cancer: FLEXIBLE SIGMOIDOSCOPY Screening every 5 yrs 2018 Colorectal Cancer: Fecal Immunochemical Test (FIT) Annually [facility] 2018 Colorectal Cancer: High-sens itivity gFOBT Screening Annually [facility] 2018 Colorectal Cancer: Stool Col oguard Screening every 3 yrs 2018 Colorectal Cancer:CT Colonog rubi Screening every 5 yrs 2018 Zoster/Shingles Vaccine Seri es Screening: Adults aged 18+ yrs (or HM Modifiers)([facility]) (1 of 2) 2023 Flu Vaccination: Yearly for ages 18mos through 64 years (or Modifier)([facility]) 05/07/2024 COVID-19 Vaccine Screening: Initial Series and Booster Status ([facility]) (2023- season) 2024 Pneumococcal Vaccination Scr eening: Pts 0-19 & 19-49 yrs of age ([facility]) Aged Out No longer eligible b ased on patient's age to complete this topic Medical Devices Not on file Care Teams Manager Of Broadcast Content Relationship Specialty Start Date End Date Pcp, No PCP - General Family Medicine 09/19/24
--- NOTE | 2025-01-07 09:26 | MHC.OFFVIS ---
Intake Visit Reasons: Pre-Op: R ISAAC w/NE 01/12/25 Intake Note: Janak is a 49 year old male who presents today for his Pre-Operative appointment. He is booked for a Right ISAAC 01/12/25. He has been provided with a Pain Management Agreement Form to review and sign with provider. Allergies No Known Allergies Allergy (Verified 01/07/25 09:26) HPI HPI Pre-Op: R ISAAC w/NE 01/12/25: Details: Janak is a 49 year old male who presents today for his Pre-Operative appointment. He is booked for a Right ISAAC 01/12/25. He has been provided with a Pain Management Agreement Form to review and sign with provider. Yareli is scheduled for a right hip replacement next week. He has had longstanding right hip pain. He had a femoral nail inserted after a femur fracture many years ago which was removed proximally 4-1/2 months ago. He had a ipsilateral DVT postoperatively and was started on anticoagulation which he stopped after 3 months. He has had no symptoms since the surgery. His only complaint is right groin pain that is unbearable. He has been having increasing difficulty ambulating and working. [facility] Medical History (Updated 12/22/24 @ 08:29 by Paulina Dunham RN) SARAH (obstructive sleep apnea) Refusal of blood transfusion for reasons of conscience Low testosterone in male Low back pain DVT (deep venous thrombosis) (~08/2024) Hx of renal calculi (~2009) Back pain Arthritis Elevated cholesterol HTN (hypertension) Localized osteoarthritis of left knee Surgical History (Updated 12/15/24 @ 13:58 by Paulina Dunham RN) S/P hardware removal (08/25/24) History of ankle surgery Hx of knee surgery Femur fracture, right Social History (Updated 12/15/24 @ 12:08 by Paulina Dunham RN) Household Members: Family Housing: House Are you a primary medical care manager to a significant other at home: No Do you presently have visiting nurse or other home services: No 75 years or older and lives alone: No Comment: uses electric scooter at times for long distances Patient Tobacco Use Status: Never used Tobacco Current occupational status: employed Current occupation: [employer] Physical Exam Const General: cooperative, healthy appearing, no acute distress, well developed and alert HEENT Head: Yes normal to inspection, Yes normocephalic and Yes atraumatic Mouth: moist mucous membranes Eyes General: appearance normal, both eyes and all related structures EOM: EOMs intact bilaterally Chest Other: no audible wheezing. Resp Other: No audible wheezing Effort & Inspection: normal respiratory effort Cardio Other: Radial pulse palpable with no rythmic abnormalities Back/Spine/Pelvis Cervical Spine: normal cervical lordosis Skin General skin exam: no rashes or lesions noted Neuro General: no focal motor deficits Extrem Other: Incision clean dry and intact lateral right proximal and distal femur. Minimal internal rotation and positive impingement test. Psych Appearance: grossly normal and well kempt Mental Status: mental status grossly normal Speech and movement: Normal speech and movement present Affect: normal affect Attitude: cooperative Results Reviewed Results Reviewed: I personally reviewed relevant radiographs. Severe right hip OA s/p removal of hardware with no complcations Assessment & Plan Assessment & Plan (1) Post-traumatic osteoarthritis of right hip: Code(s): M16.51 - Unilateral post-traumatic osteoarthritis, right hip Category: Medical Plan: This is a 49-year-old gentleman with posttraumatic osteoarthritis of the right hip. His arthritis is severe and I have recommended hip replacement. Removal of hardware was undertaken proximally 5 months ago and he did well other than having a postoperative DVT which was treated. We discussed his upcoming surgery and he understands the risks of blood clots and PE and we will anticoagulate him a soon as possible after the surgery likely 12-18 hours depending on bleeding. He is refusing blood products from an donor that is vaccinated and therefore I can not assure him that he would receive blood products from such a donor therefore we will avoid transfusion. In the event of a life-saving need he will consent but other than that we will abstain from transfusions. From a cardiopulmonary perspective he is healthy. He has stopped taking his meloxicam prior to surgery. I further discussed the risks of fracture, dislocation, need for further surgery, pain, inability to return to full activities such as competitive ice hockey. He expressed understanding. We will proceed forward accordingly. Orders: Orders XR pelvis 1-2V Today M25.559 - Pain in unspecified hip Coding Level of Care Code Est Pt Level 3 (09945) Diagnoses Post-traumatic osteoarthritis of right hip M16.51
== END 2025-01-07 10:07 | disposition home or self-care (01) ==
LOC: HO.HOS 09:04
PROVIDERS: PCP Family Medicine; Visit Provider Orthopaedic Surgery
DX: M16.51 Unilateral post-traumatic osteoarthritis, right hip (principal)
CPT/HCPCS: 99024

== ENCOUNTER → 2025-01-07 09:07 | Outpatient (BNV) | payer OTHER, SELFPAY | PROVIDERS: Visit Provider Specialist | DX: M25.551 Pain in right hip (principal) | CPT/HCPCS: 73502 ==

== ENCOUNTER 2025-01-12 07:04 | Day surgery (SDC) | payer OTHER, SELFPAY ==
--- OUTSIDE RECORDS SUMMARY | 2024-11-20 10:48 | XMS_ITS | Clinical Summary ---
Author Organization [employer] [facility] [employer] Address [address] [facility] [place] [address] Care Team Providers Care Tobacco Prizer Name Role Phone Pcp, No Primary Care Provider [phone] Allergies No known active allergies Medications Eliquis 5 mg PLEASE SEE ATTACHED FOR DETAILED DIRECTIONS 4 Active minoxidiL (LONITEN) 2.5 MG tablet TAKE 1 TABLET BY MOUTH EVERY DAY 4 Active celecoxib (CeleBREX) 200 MG capsule TAKE 1 CAPSULE BY MOUTH TWICE A DAY 4 Active lisinopriL-hydr ochlorothiazide (ZESTORETIC) 10-12.5 mg tablet TAKE 1 TABLET BY MOUTH EVERY DAY 4 Active tamoxifen (NOLVADEX) 10 MG tablet TAKE 1 TABLET BY MOUTH EVERY DAY 4 Active Encounters Date Type Department Care Team Description 09/19/2024 12:30 PM EST [facility] [id number] [place] [address] Alicia Arboleda NP Encounter for other administrative examinations (Primary Dx) from Last 3 Months Social History Tobacco Use Types Packs/Day Years Used Date Smoking Tobacco: Never Smokeless Tobacco: Never Tobacco Cessation:Counseling Given: Yes Sex and Gender Information Value Date Recorded Sex Assigned at Not on file Legal Sex Male 12:02 PM EST Gender Identity Not on file Sexual Orientation Not on file Last Filed Vital Signs Vital Sign Reading Time Taken Comments Blood Pressure 109/57 09/19/2024 12:43 PM EST Pulse 100 09/19/2024 12:43 PM EST Temperature 36.8 ??C (98.2 ??F) 09/19/2024 12:[address] Respiratory Rate 16 09/19/2024 12:43 PM EST Oxygen Saturation 98% 09/19/2024 12:43 PM EST Inhaled Oxygen Concentration - - Weight 108 kg (239 lb) 09/19/2024 12:43 PM EST Height 177.8 cm (5' 10 ) 09/19/2024 12:43 PM EST Body Mass Index 34.29 09/19/2024 12:43 PM EST Plan of Treatment Health Maintenance Due Date Last Done Comments Colorectal Cancer: COLONOSCO PY Screening every 10 yrs (or Modifier) 1973 Depression: Screening Annual ly using PHQ-2/9 in Adults 18 yrs or above (or HM Modifier)([facility]) 1991 Hepatitis C Virus Infection in Adolescents and Adults: Screening (or Modifier) ([facility]) 1991 SDAR Screening Reminder: Dia vargas for all adults ([facility]) 1991 DTaP/Tdap/Td Vaccines ([facility]) (1 - Tdap) 1992 Lipid Screening: Every 5 yrs for Men aged 35+ (or HM Modifier) ([facility]) 2009 Colorectal Cancer Screening 45 -75 Yrs (or HM Modifier) 2018 Colorectal Cancer: FLEXIBLE SIGMOIDOSCOPY Screening every 5 yrs 2018 Colorectal Cancer: Fecal Immunochemical Test (FIT) Annually [facility] 2018 Colorectal Cancer: High-sens itivity gFOBT Screening Annually [facility] 2018 Colorectal Cancer: Stool Col oguard Screening every 3 yrs 2018 Colorectal Cancer:CT Colonog rubi Screening every 5 yrs 2018 Zoster/Shingles Vaccine Seri es Screening: Adults aged 18+ yrs (or HM Modifiers)([facility]) (1 of 2) 2023 Flu Vaccination: Yearly for ages 18mos through 64 years (or Modifier)([facility]) 05/07/2024 COVID-19 Vaccine Screening: Initial Series and Booster Status ([facility]) ( - 2023- season) 2024 Pneumococcal Vaccination Scr eening: Pts 0-19 & 19-64 yrs of age ([facility]) Aged Out No longer eligible b ased on patient's age to complete this topic Medical Devices Not on file Care Teams Tobacco Prizer Relationship Specialty Start Date End Date Pcp, No PCP - General Family Medicine 09/19/24
--- NOTE | 2024-12-15 | ECG_ITS ---
Test Reason : preop Blood Pressure : */* mmHG Vent. Rate : 86 BPM Atrial Rate : 86 BPM P-R Int : 122 ms QRS Dur : 80 ms QT Int : 334 ms P-R-T Axes : 61 -28 -41 degrees QTcB Int : 399 ms Normal sinus rhythm Nonspecific ST and T wave abnormality Abnormal ECG No previous ECGs available Referred By: Francia Geiger Electronically Signed By: LEIF FOWLER
[2024-12-15 11:44] VITALS: BP 132/79; PULSE 91; RESP 16; O2SAT 95; BMI 36.5
--- NOTE | 2024-12-15 12:18 | HO.ANESPROP2 ---
Documented by User: Francia eGiger NP 12/22/24 14:06 HPI - Anesthesia Eval Consult details Narrative: 49yo M for Right Hip Total Replacement, 01/12/25 Medically optimized per PCP s/p R hip hardware removal 08/2024 with GA-ETT 7.5 Hx DVT 08/2024 post hardware removal - previously tx'd with Eliquis x 3 months PMFSH Active Problems Active Problems: All Active Problems Right leg DVT (Acute) Swelling of right lower extremity (Acute) Pain of right calf (Acute) Retained orthopedic hardware (Acute) Post-traumatic osteoarthritis of right hip (Acute) Localized osteoarthritis of left knee (Acute) Past Medical History Medical History SARAH (obstructive sleep apnea) Refusal of blood transfusion for reasons of conscience Low testosterone in male Low back pain DVT (deep venous thrombosis) (~08/2024) Hx of renal calculi (~2009) Back pain Arthritis Elevated cholesterol HTN (hypertension) Localized osteoarthritis of left knee Family History Family history of problems with anesthesia: No Surgical History Surgical History S/P hardware removal (08/25/24) History of ankle surgery Hx of knee surgery Femur fracture, right History of Problems with Anesthesia: No Social History Social History Household Members: Family Housing: House Are you a primary mall plant caretaker to a significant other at home: No Do you presently have visiting nurse or other home services: No Comment: uses electric scooter at times for long distances Patient Tobacco Use Status: Never used Tobacco Use of substances other than those prescribed or required for medical reasons: No Have you been hit, kicked, punched, or otherwise hurt by someone within the past year? If so, by whom?: No Are you DNR?: No Advance Directives: No Advance Directives Information Provided: Yes Advance Directives on File: No Recently lost weight without trying: No Nutrition Risks: No Nutritional Risk Current occupational status: employed Current occupation: [employer] Allergies Allergy/AdvReac Type Severity Reaction Status Date / Time No Known Allergies Allergy Verified 01/12/25 07:22 Home Medications ?Medication ?Instructions ?Recorded ?Confirmed ?Last Taken ?Type meloxicam 15 mg tablet 15 mg PO DAILY 10/28/23 12/15/24 01/05/25 History tamoxifen 20 mg tablet 10 mg PO DAILY 10/28/23 12/15/24 01/11/25 History testosterone cypionate 200 mg/mL 100 mg IM QWEEK 10/28/23 12/15/24 Unknown History intramuscular oil (Depo-Testosterone) lisinopril 10 1 tab PO DAILY 08/20/24 12/15/24 01/11/25 History mg-hydrochlorothiazide 12.5 mg tablet minoxidil 2.5 mg tablet 2.5 mg PO DAILY 08/20/24 12/15/24 01/11/25 History Exam Height,Weight and Vital Signs: Height 5 ft 10 in Weight 115.3 kg Last Vital Signs Pulse 91 12/15/24 11:44 Resp 16 12/15/24 11:44 BP 132/79 12/15/24 11:44 Pulse Ox 95 12/15/24 11:44 O2 Del Method Room Air 12/15/24 11:44 Pertinent Lab Results Pertinent Lab Results: Lab Results 12/15/24 12/15/24 Range/Units 12:20 12:56 WBC 6.1 (4.8-10.8) X10*3/uL RBC 5.59 (4.60-5.80) X10*6/uL Hgb 16.4 (14.0-18.0) g/dl Hct 49.1 (42.0-52.0) % MCV 87.8 (80.0-98.0) fL MCH 29.3 (27.0-33.0) pg MCHC 33.4 (31.0-36.0) g/dl RDW 13.4 (11.0-16.0) % Plt Count 265 (160-400) X10*3/uL MPV 9.6 (9.4-12.4) fL Absolute Nucleated RBC 0.000 (0.0-0.012) X10*3/uL Nucleated RBC % (auto) 0.0 (0.0-0.2) /100WBC Sodium 143 (135-145) mmol/L Potassium 4.1 (3.3-5.1) mmol/L Chloride 113 H (96-108) mmol/L Carbon Dioxide 24 (22-29) mmol/L Anion Gap 10 L (12-20) BUN 29 H (9-16) mg/dL Creatinine 1.15 (0.5-1.4) mg/dL Estim Creat Clear Calc 96.6 Estimated GFR > 60 Random Glucose 80 (60-115) mg/dL Calcium 9.4 (8.4-10.2) mg/dL Nasal Screen MRSA (PCR) NEGATIVE (Negative) Nasal S. aureus Screen NEGATIVE (Negative) Nasal MRSA/S.aureus Interp SEE NOTE Narrative Narrative: EKG 12/2024 Vent. Rate : 86 BPM Atrial Rate : 86 BPM P-R Int : 122 ms QRS Dur : 80 ms QT Int : 334 ms P-R-T Axes : 61 -28 -41 degrees QTcB Int : 399 ms Normal sinus rhythm Nonspecific ST and T wave abnormality Abnormal ECG No previous ECGs available Airway Mallampati Class: II TM Dist: >3cm Neck ROM: Full Loose/Missing/Broken Teeth: No (#8 implant) Heart: RRR Lungs: CTAB Assessment and Plan Assessment Anesthesia Assessment: Anesthesia Plan Discussed and PAT Visit Final Anesthetic Review Family History of Problems with Anesthesia: No History of Problems with Anesthesia: No Documented by User: Elizabeth Sandoval MD 01/12/25 08:14 [facility] Past Medical History Medical History SARAH (obstructive sleep apnea) Refusal of blood transfusion for reasons of conscience Low testosterone in male Low back pain DVT (deep venous thrombosis) (~08/2024) Hx of renal calculi (~2009) Back pain Arthritis Elevated cholesterol HTN (hypertension) Localized osteoarthritis of left knee Surgical History Surgical History S/P hardware removal (08/25/24) History of ankle surgery Hx of knee surgery Femur fracture, right Social History Social History Household Members: Family Housing: House Are you a primary mall plant caretaker to a significant other at home: No Do you presently have visiting nurse or other home services: No Comment: uses electric scooter at times for long distances Patient Tobacco Use Status: Never used Tobacco Use of substances other than those prescribed or required for medical reasons: No Have you been hit, kicked, punched, or otherwise hurt by someone within the past year? If so, by whom?: No Are you DNR?: No Advance Directives: No Advance Directives Information Provided: Yes Advance Directives on File: No Recently lost weight without trying: No Nutrition Risks: No Nutritional Risk Current occupational status: employed Current occupation: [employer] Allergies Allergy/AdvReac Type Severity Reaction Status Date / Time No Known Allergies Allergy Verified 01/12/25 07:22 Home Medications ?Medication ?Instructions ?Recorded ?Confirmed ?Last Taken ?Type meloxicam 15 mg tablet 15 mg PO DAILY 10/28/23 12/15/24 01/05/25 History tamoxifen 20 mg tablet 10 mg PO DAILY 10/28/23 12/15/24 01/11/25 History testosterone cypionate 200 mg/mL 100 mg IM QWEEK 10/28/23 12/15/24 Unknown History intramuscular oil (Depo-Testosterone) lisinopril 10 1 tab PO DAILY 08/20/24 12/15/24 01/11/25 History mg-hydrochlorothiazide 12.5 mg tablet minoxidil 2.5 mg tablet 2.5 mg PO DAILY 08/20/24 12/15/24 01/11/25 History Exam Airway Mallampati Class: III Assessment and Plan Final Anesthetic Review NPO: Yes ASA Class: II Final Preanesthetic Review: Meds/Allgs Chart Reviewed, Consent Obtained/Reviewed and Anes Risks/Benef Reviewed Patient Risk: Low Procedure Risk: Intermediate Anesthetic Plan Anesthetic Plan: GA Disposition: Standard PACU
[2024-12-15 13:22] LABS: Hematocrit 49.1 % (42.0-52.0); Hemoglobin 16.4 g/dl (14.0-18.0); Mean Corpuscular HGB Conc 33.4 g/dl (31.0-36.0); Mean Corpuscular Hemoglobin 29.3 pg (27.0-33.0); Mean Corpuscular Volume 87.8 fL (80.0-98.0); Mean Platelet Volume 9.6 fL (9.4-12.4); Platelet Count 265 X10*3/uL (160-400); Red Blood Count 5.59 X10*6/uL (4.60-5.80); Red Cell Distribution Width 13.4 % (11.0-16.0); White Blood Count 6.1 X10*3/uL (4.8-10.8)
[2024-12-15 14:18] LABS: MRSA Nasal PCR NEGATIVE (Negative); SA Nasal PCR NEGATIVE (Negative)
[2024-12-15 14:20] LABS: Anion Gap 10 (12-20); Blood Urea Nitrogen 29 mg/dL (9-16); Calcium 9.4 mg/dL (8.4-10.2); Carbon Dioxide 24 mmol/L (22-29); Chloride 113 mmol/L (96-108); Creatinine Clr Calc Pharmacy 96.6; Estimated Glomerular Filt Rate > 60; Glucose Random 80 mg/dL (60-115); Potassium 4.1 mmol/L (3.3-5.1); Sodium 143 mmol/L (135-145)
[2025-01-12] VITALS (14 sets, daily range): BP systolic 108–130; BP diastolic 59–85; PULSE 84–112; RESP 14–20; TEMP 36.3–37.1; O2SAT 93–96; BMI 36.6
--- NOTE | ~2025-01-12 | XR_ITS ---
EXAMINATION: XR PELVIS CLINICAL INFORMATION: Right nela COMPARISON: 01/07/2025. TECHNIQUE: AP view of the pelvis. FINDINGS: There is been interval right total hip arthroplasty. Femoral, and acetabular components appear intact, well seated, in anatomic alignment. No periprosthetic fracture or lucency. Mild degenerative arthritis in the left hip, unchanged. Pelvis is intact. SI joints appear normal. Normal soft tissues. XR/XR pelvis 1-2V IMPRESSION: Right total hip arthroplasty without complication. Electronically signed by: Kulwinder Kuo MD 01/12/2025 01:44 PM EDT
[2025-01-12] MEDS: oxyCODONE HCl ER 10 MG TAB.ER.12H PO ×2 (08:19→20:33)
[2025-01-12] MEDS: Lactated Ringers 1,000 ML 100 ML IVCONT ×3 (08:33→23:01)
--- NOTE | 2025-01-12 09:06 | P.DS_ITS ---
DS: Providers Provider Date of Service: 01/13/25 Date of discharge: 01/13/25 Primary care physician: Floyd Olvera MD DS: Summary Hospital Course Hospital Course: The patient underwent a successful right total hip arthroplasty, they were transferred to PACU and then to the floor to recover. During their stay, their vitals were stable, afebrile at 98.1. Labs were unremarkable. POD 1 they were started on Lovenox for DVT ppx, they also received Physical Therapy services. Prior to discharge, their dressing was clean dry and intact, and the plan was to be discharged home with VNA services. Time Attestation Discharge Coordination Time (in mins): 30 Quality: Safe Use of Opioids Does Pt have an Active Cancer Diagnosis on the Problem List?: No Quality: Stroke Does the patient have a stroke diagnosis?: No Physical Exam Vital Signs: Vital Signs: Last Vital Signs Temp 98.2 F 01/12/25 08:02 Pulse 84 01/12/25 08:02 Resp 14 01/12/25 08:02 BP 125/85 01/12/25 08:02 Pulse Ox 95 01/12/25 08:02 O2 Del Method Room Air 01/12/25 08:02 BMI result Body Mass Index 36.6 Const: General: cooperative, healthy appearing and no acute distress Resp: Effort & Inspection: normal respiratory effort and able to speak in com plete sentences Cardio: Rate: regular rate Peripheral pulses: Peripheral pulses 2+ throughout GI: Palpation (GI): Soft to palpation Skin: Lesions: no lesions Rashes: no rashes Extrem: Other: right hip dressing is c/d/i. Able to dorsi/plantar flex. Calf is supple and nontender. Sensation intact. Pedal pulse intact. Discharge Plan Discharge Patient Disposition: Home Health Service Referrals: Laly Perkins PA-C [Physician Cam Milling Machine Operator] - 01/28/25 12:45 pm Discharge Medications: No Action (DME) walker Misc See Rx Instructions .MEDSUPPLY Qty: 1 0RF Rx Instructions: Folding Front wheeled walker duration 99 days (DME) SHOWER CHAIR See Rx Instructions .ROUTE .MEDSUPPLY Qty: 1 0RF Rx Instructions: As directed duration 99 days (DME) Raised toilet seat See Rx Instructions .ROUTE .MEDSUPPLY Qty: 1 0RF Rx Instructions: duration - 99 days minoxidil 2.5 mg tablet 2.5 mg PO DAILY lisinopril-hydrochlorothiazide 10-12.5 mg Tablet 1 tab PO DAILY tamoxifen 10 mg tablet 10 mg PO DAILY meloxicam 15 mg tablet 15 mg PO DAILY testosterone cypionate [Depo-Testosterone] 200 mg/mL oil 100 mg IM QWEEK Discharge Orders: Discharge Order (Routine); Ordered 01/13/25 Ordered By: Laly Perkins Diet: Advance to usual diet Activity on Discharge: Use cane or walker Activity Restrictions/Additional Instructions: Physical Therapy for total hip arthroplasty: posterior precautions, gait training, ROM, strength Limit stair climbing No showering, no tub bath-keep dressing clean, dry and intact No driving x6 weeks Continue Lovenox x 6 weeks Follow up with [facility] Orthopedics in 2 weeks Print Language: Azeri
--- NOTE | 2025-01-12 09:07 | W.MHC.F2F ---
Service Date Service Date: 01/12/25 Encounter Date of encounter: 01/13/25 Reasons for Services Signs and symptoms assessed: s/p RTHA Pt. is considered homebound due to recent surgery. Unable to drive, poor balance, poor gait mechanics. Reason for physical therapy: home safety and mobility, therapeutic exercises, restore joint function, gait/transfer training and ADL training Reason for occupational therapy: home safety and mobility, therapeutic exercises, restore joint function, gait/transfer training and ADL training Homebound: Leaving the home is medically contraindicated at this time without the asist of a device and/or another person due th the listed conditions above and below. Reason homebound: unsteady gait / fall risk, leg weakness, pain with ambulation, pain with transfers, poor balance / fall risk and unable to drive Certification: Based on the above findings, I certify that this patient is confined to the home and needs intermittent longterm care, physical therapy and/or speech therapy, or continues to need occupational therapy. The patient is under my care, and I have initiated the establishment of the plan of care. The patient will be followed by a physician who will periodically review the plan of care. Time Spent With Patient Time: Total time managing care of this patient today ____ minutes.
--- NOTE | 2025-01-12 09:36 | MHC.SHP ---
Pre-Procedural Eval Section A - 24 Hr Update-Section A only Date of Service: 01/12/25 The patient is an INPATIENT: No Changes since office visit: No Cold of Flu in the past 2 weeks, No New Medical Problems, No Changes in Medication and No Patient answered all questions The patient has been examined within 24 hours of the surgical procedure. The History & Physical has been completed within 30 days and I have reviewed it.: Yes Section B - Complete if H&P > 30 days Chief Complaint: Unilateral post-traumatic osteoarthritis, right hi Allergies: Allergies Allergy/AdvReac Type Severity Reaction Status Date / Time No Known Allergies Allergy Verified 01/12/25 07:22 Plan I have reviewed the history and physical and performed a pertinent physical examination on my patient. No changes have occurred unless specified. Time Spent With Patient Time: Total time managing care of this patient today ____ minutes.
[2025-01-12] MEDS: ceFAZolin Sodium/Dextrose,Iso 2 GM/50 ML PIGGYBACK IV ×2 (10:00→15:32)
--- NOTE | 2025-01-12 12:19 | W.PM.OPN ---
Operative Note Operative Note Date of Service: 01/12/25 Narrative: Date of Service: 01/12/25 Pre-op diagnosis: Right hip OA Post-op diagnosis: same Procedure: Right ISAAC Implants: Deland Trident2 54 Deland Accolade2 #6 127/ +0 36 Ceramic Surgeon: Nikhil Madrigal MD Anesthesia: GETA and local Was an Tool Machine Shop Supervisor used for this Procedure?: Yes Tool Machine Shop Supervisor: Mich Logan Estimated blood loss (mL): 250 IV fluids (mL): 1,000 Pathology: other Condition: stable Disposition: PACU Patient was brought into the operating room and placed in the right lateral decubitus position. All bony prominences were well padded and the limb was prepped and draped in standard sterile fashion. A time-out was called to identify proper site procedure proper surgeon IV antibiotic. TXA was held.. I began by making a curvilinear incision over the posterolateral aspect of the greater trochanter. THe prior traumatic incision were too anterior and so a posterior incision was made with > 8cm between new and old incisions. Dissection was taken down to the tensor fascia which was incised in line with the incision and a Charnley retractor was placed. Fastseal was used to maintain hemostasis. The hip was internally rotated and the external rotators were identified. The vessels were cauterized and a full-thickness capsular/external rotator layer was developed starting just proximal to the piriformis. This layer was tagged and a dull Hohmann retractor was placed underneath the neck in the hip was dislocated. A neck cut was made 1 cm proximal to the lesser trochanter and the head and neck were removed and measured 50-51mm on the back table. The head was deformed and eburnated. I then removed the labrum and cauterized the fovea. I started with a 44 reamer and medialized to the inner table. I sequentially reamed up to a size 54 and impacted a 54mm cup at ~45 degrees of inclination and ~25 degrees of version. I then placed a 20 deg posterior lipped liner and turned my attention to the femur. I identified the piriformis insertion and used this as a starting point for my poloie cutter. The medius tendon was protected with a Hibs retractor. A Charnley awl was inserted in the canal and a curved curette used to remove the lateral bone. I irrigated copiously. I then sequentially broached in the patient's natural version to a size6 and placed my trial implants. I used a #6/127/+0 based on my pre-operative template. I removed all instrumentation and copiously irrigated. I placed my final femoral implant and again took the hip through range of motion and was satisfied with the stability and length. The final +0 implant was impacted in place and the hip reduced. I then irrigated copiously. I performed a capsular closure with 2.0 fiberwire, Mason's fascia with 0 Vicryl, subcuticular with 2-0 Vicryl and the skin with lucas. Patient was placed into a sterile dressing. Patient was extubated brought to the recovery room in stable condition. There were no known complications.
[2025-01-12] MEDS: HYDROmorphone HCl 0.5 MG/0.5 ML SYRINGE 0.25 MG IVPUSH ×4 (12:35→13:25)
[2025-01-12] MEDS: ondansetron HCL 4 MG/2 ML VIAL IVPUSH (12:40)
--- NOTE | 2025-01-12 16:14 | HO.PM.IMCN ---
History of Present Illness Data of Consult Service Date: 01/12/25 Primary Care Provider: Floyd Olvera MD HPI 49 male with HTN, on testostorone replacement here for elective right hip athroplasty done today, he is doing well post surgery, pain controlled and looking forward to leaving tomorrow. No other issues at the present. Review of Systems Review of Systems: Gen: no fever Resp: no sob, no cough CV: no chest, no LEIJA, no leg edema GI: No n/v, no abd pain Neuro: No confusion [facility] Medical History (Updated 01/12/25 @ 16:24 by Ghassan Perla MD) SARAH (obstructive sleep apnea) Refusal of blood transfusion for reasons of conscience Low testosterone in male Low back pain DVT (deep venous thrombosis) (~08/2024) Hx of renal calculi (~2009) Back pain Arthritis Elevated cholesterol HTN (hypertension) Localized osteoarthritis of left knee Surgical History S/P hardware removal (08/25/24) History of ankle surgery Hx of knee surgery Femur fracture, right Social History Household Members: Significant Other Housing: House Are you a primary senior care assistant to a significant other at home: No Do you presently have visiting nurse or other home services: No Comment: COUNTS CORRECT Patient Tobacco Use Status: Never used Tobacco Smoked in Last 30 Days: No Patient Interested in Nicotine Replacement: No Patient Given Instructions on How to Stop Smoking: No Second Hand Smoke Exposure: No Use of substances other than those prescribed or required for medical reasons: No Currently Displaying Signs/Symptoms of Drug Intoxication Withdrawal: No Any prior treatment program specific to substance use: No Have you been hit, kicked, punched, or otherwise hurt by someone within the past year? If so, by whom?: No Do you feel safe in your current relationship?: Yes Is there a partner from a previous relationship who is making you feel unsafe now?: No Are you made to feel afraid or neglected: No Are you DNR?: No Advance Directives: No Advance Directives Information Provided: Yes Advance Directives on File: No Do you have a plan to hurt others: No Plan Recently lost weight without trying: No Eating poorly because of decreased appetite: No Nutrition Risks: No Nutritional Risk Poor oral hygiene: No Current occupational status: employed Current occupation: [employer] Allergies Allergy/AdvReac Type Severity Reaction Status Date / Time No Known Allergies Allergy Verified 01/12/25 07:22 Active Medications: Current Medications Acetaminophen (Acetaminophen 325 Mg Tablet) 650 mg PO Q6H PRN PRN Reason: Pain, Mild 1-3,fever,headache Celecoxib (Celecoxib 200 Mg Capsule) 200 mg PO BID [facility] Docusate Sodium (Docusate Sodium 100 Mg Capsule) 100 mg PO BID [facility] Enoxaparin Sodium (Enoxaparin Sodium 40 Mg/0.4 Ml Syringe) 40 mg SUBCUT Q24H [facility] Hydromorphone HCl (Hydromorphone Hcl 0.5 Mg/0.5 Ml Syringe) 0.25 mg IVPUSH Q4H PRN; Protocol PRN Reason: Pain, Severe (Pain Scale 7-10) Lactated Ringer's (Lr) 1,000 mls @ 100 mls/hr IVCONT .Q10H [facility] Stop: 01/13/25 08:00 Last Admin: 01/12/25 14:13 Dose: 100 mls/hr Cefazolin Sodium/Dextrose (Ancef) 2 gm in 50 mls @ 100 mls/hr IV POSTOP ONE Stop: 01/12/25 16:29 Last Infusion: 01/12/25 16:03 Dose: Infused Minoxidil (Minoxidil 2.5 Mg Tablet) 2.5 mg PO DAILY [facility] Ondansetron HCl (Ondansetron Hcl 4 Mg/2 Ml Vial) 4 mg IVPUSH Q8H PRN PRN Reason: Nausea and Vomiting Oxycodone HCl (Oxycodone Hcl Immed Release 5 Mg Tablet) 5 mg PO Q4H PRN PRN Reason: Pain, Moderate(Pain Scale 4-6) Oxycodone HCl (Oxycodone Hcl Er 10 Mg Tab.Er.12h) 10 mg PO BID [facility] Sodium Chloride (0.9 % Sodium Chloride Flush 3 Ml Syringe) 3 ml IVFLUSH QSHIFT [facility] Last Admin: 01/12/25 15:15 Dose: Not Given Tamoxifen Citrate (Tamoxifen Citrate 10 Mg Tablet) 10 mg PO DAILY [facility] Tamoxifen Citrate (Tamoxifen Citrate 10 Mg Tablet) 10 mg PO DAILY [facility] Testosterone Cypionate (Testosterone Cypionate 200 Mg/1 Ml Vial) 100 mg IM Fr [facility] Home Medications ?Medication ?Instructions ?Recorded ?Confirmed ?Last Taken ?Type meloxicam 15 mg tablet 15 mg PO DAILY 10/28/23 12/15/24 01/05/25 History testosterone cypionate 200 mg/mL 100 mg IM QWEEK 10/28/23 12/15/24 Unknown History intramuscular oil (Depo-Testosterone) lisinopril 10 1 tab PO DAILY 08/20/24 12/15/24 01/11/25 History mg-hydrochlorothiazide 12.5 mg tablet minoxidil 2.5 mg tablet 2.5 mg PO DAILY 08/20/24 12/15/24 01/11/25 History tamoxifen 10 mg tablet 10 mg PO DAILY 01/12/25 01/12/25 01/11/25 History Physical Exam Vital Signs and Narrative: Vital Signs: Last Vital Signs Temp 98.3 F 01/12/25 13:55 Pulse 108 H 01/12/25 13:55 Resp 18 01/12/25 13:55 BP 116/67 01/12/25 13:55 Pulse Ox 93 01/12/25 13:55 O2 Del Method Nasal Cannula 01/12/25 13:55 O2 Flow Rate 2 01/12/25 13:55 BMI result Body Mass Index 36.6 Const: Other: General: AO X 3, no acute distress Resp: CTA bilateral CVS: S1,S2,RRR GI: +BS, NT, no distention Skin: No rash, MSK right hip looks clean d/c/i Neuro: motor grossly intact Psych: appropriate affect Results Labs 12/15/24 12:56 12/15/24 12:56 Imaging Radiologist's Impressions: Impressions Pelvis X-Ray 01/12/25 13:30 IMPRESSION: Right total hip arthroplasty without complication. Electronically signed by: Kulwinder Kuo MD 01/12/2025 01:44 PM EDT Assessment and Plan (1) HTN (hypertension): Status: Acute Plan 49 male with HTN, on testostorone replacement here for elective right hip athroplasty done today, he is doing well post surgery, pain controlled and looking forward to leaving tomorrow. No other issues at the present. --continue post op care --resume all bp meds by tomorrow --pain controll and dvt prophylaxis per ortho
[2025-01-12] MEDS: Docusate Sodium 100 MG CAPSULE PO (20:33)
[2025-01-12] MEDS: Celecoxib 200 MG CAPSULE PO (20:37)
--- NOTE | 2025-01-13 | ECG_ITS ---
Test Reason : heart rate Blood Pressure : */* mmHG Vent. Rate : 106 BPM Atrial Rate : 106 BPM P-R Int : 126 ms QRS Dur : 86 ms QT Int : 312 ms P-R-T Axes : 48 -24 -28 degrees QTcB Int : 414 ms Sinus tachycardia Nonspecific ST abnormality Abnormal ECG When compared with ECG of 15-Dec-2024 12:37, No significant change was found Referred By: Ghassan Perla Electronically Signed By: Choco Edouard
[2025-01-13 00:04] VITALS: BP 104/54; PULSE 107; RESP 18; TEMP 37.4; O2SAT 94
[2025-01-13 05:00] VITALS: BP 124/65; PULSE 117; RESP 18; TEMP 36.7; O2SAT 96
[2025-01-13] MEDS: HYDROmorphone HCl 0.5 MG/0.5 ML SYRINGE 0.25 MG IVPUSH ×2 (05:06→09:36)
[2025-01-13] MEDS: Docusate Sodium 100 MG CAPSULE PO (07:05)
[2025-01-13] MEDS: Tamoxifen Citrate 10 MG TABLET PO ×2 (07:06)
[2025-01-13] MEDS: Celecoxib 200 MG CAPSULE PO (07:06)
[2025-01-13] MEDS: oxyCODONE HCl ER 10 MG TAB.ER.12H PO (07:06)
[2025-01-13] MEDS: minoxidiL 2.5 MG TABLET PO (07:06)
[2025-01-13 07:38] VITALS: BP 117/60; PULSE 120; RESP 20; TEMP 37.1; O2SAT 94
--- NOTE | 2025-01-13 08:17 | HO.POSTANES ---
Post Anesthesia Evaluation Post Anesthesia Evaluation Date of Service: 01/13/25 Vital Signs: Vital Signs Temp Pulse Resp BP Pulse Ox O2 Del Method 01/13/25 07:38 98.8 F 120 H 20 117/60 94 Room Air 01/13/25 05:00 98.1 F 117 H 18 124/65 96 Room Air 01/13/25 00:04 99.4 F 107 H 18 104/54 L 94 Room Air Anesthesia: General Endotracheal-GETA Mental Status: Awake Pain Control: Satisfactory Nausea/Vomiting: None Hydration: Adequate Anesthesia-Related Issues: No Anes. Related Issues
[2025-01-13 08:21] LABS: MANUAL DIFF FLAG NO
[2025-01-13] MEDS: Enoxaparin Sodium 40 MG/0.4 ML SYRINGE SUBCUT (08:27)
[2025-01-13 08:30] LABS: Basophils Percent Auto 0.2 % (0-2); Eosinophils Percent Auto 0.2 % (0-4); Hematocrit 41.8 % (42.0-52.0); Hemoglobin 13.8 g/dl (14.0-18.0); Imm Gran Abs Auto 0.18 X10*3/uL (0.00-0.03); Imm Gran Pct Auto 1.5 % (0.0-0.4); Lymphocytes Absolute Auto 1.4 X10*3/uL (1.2-4.9); Lymphocytes Percent Auto 11.3 % (20-40); Mean Corpuscular Hemoglobin 29.2 pg (27.0-33.0); Mean Corpuscular Volume 88.4 fL (80.0-98.0); Mean Platelet Volume 9.8 fL (9.4-12.4); Monocytes Absolute Auto 1.3 X10*3/uL (0.1-1.2); Neutrophils Absolute Auto 9.1 x10*3/uL (2.0-8.3); Neutrophils Percent Auto 75.8 % (45-73); Platelet Count 247 X10*3/uL (160-400); Red Blood Count 4.73 X10*6/uL (4.60-5.80); Red Cell Distribution Width 13.6 % (11.0-16.0)
[2025-01-13 08:39] LABS: Anion Gap 15 (12-20); Blood Urea Nitrogen 19 mg/dL (9-16); Calcium 8.6 mg/dL (8.4-10.2); Carbon Dioxide 23 mmol/L (22-29); Chloride 104 mmol/L (96-108); Creatinine Clr Calc Pharmacy 95.9; Estimated Glomerular Filt Rate > 60; Glucose Fasting 117 mg/dL (60-99); Sodium 138 mmol/L (135-145)
[2025-01-13 09:00] VITALS: PULSE 131
--- NOTE | 2025-01-13 09:37 | MHC.CM.PN ---
Addendum entered by Alyse Andrews 01/13/25 12:22: CM UNABLE TO SECURE A VNA THAT SERVICES [employer] AND CONTRACTED WITH PT'S INSURANCE. ORTHO NURSE NAVIGATOR AND PA MADE AWARE. MESSAGE LEFT FOR PT WHO HAD ALREADY DC REGARDING O.P. REHAB AT [facility] [place]. CM INSTRUCTED PT TO F/U WITH ORTHO OFFICE TO F/U ON O.P. REFERRAL Original Note: CM MET WITH PT AT BEDSIDE. PT LIVES WITH S/O AND IS FUNCTIONALLY INDEPENDENT AT BASELINE. PT DECLINES COMPLETING HCP. PCP SAVI JULIEN DP: PT HAS BEEN MEDICALLY CLEARED FOR DC HOME WITH NEW VNA FOR P.T. CM CONTINUES TO ATTEMPT TO SECURE A VNA THAT SERVICES PT'S DEMOGRAPHIC AND CONTRACTED WITH PT'S INSURANCE. PT AWARE. [facility]/O WILL TRANSPORT HOME.
== END 2025-01-13 10:24 | disposition home health service (06) ==
LOC: HO.SSS 09:06 → HO.S3 13:02
PROVIDERS: Nurse Practitioner; Physician Assistant; PCP Family Medicine; Visit Provider Orthopaedic Surgery
PROC: (CPT 27130; principal; 2025-01-12 09:50)
DX: M16.51 Unilateral post-traumatic osteoarthritis, right hip (principal); M25.551 Pain in right hip; R26.2 Difficulty in walking, not elsewhere classified; Z87.81 Personal history of (healed) traumatic fracture; I10 Essential (primary) hypertension; E78.00 Pure hypercholesterolemia, unspecified; Z86.718 Personal history of other venous thrombosis and embolism; G47.33 Obstructive sleep apnea (adult) (pediatric); Z98.890 Other specified postprocedural states
CPT/HCPCS: 27130; 36415; 72170; 80048; 85025; 85027; 87640; 87641; 88304; 88311; 93005; 97161; 97165; C1776; J0131; J0690; J1100; J1171; J1650; J2003; J2250; J2371; J2405; J2704; J2795; J3010; J7120

== ENCOUNTER → 2025-01-12 07:04 | Outpatient (BNV) | payer OTHER, SELFPAY | PROVIDERS: PCP Family Medicine; Visit Provider Orthopaedic Surgery | DX: Z47.1 Aftercare following joint replacement surgery (principal); Z96.641 Presence of right artificial hip joint | CPT/HCPCS: 27130; 99024; G0180 ==

== ENCOUNTER → 2025-01-12 07:04 | Outpatient (BNV) | payer OTHER, SELFPAY | PROVIDERS: PCP Family Medicine; Visit Provider Internal Medicine | DX: I10 Essential (primary) hypertension (principal) | CPT/HCPCS: 99222 ==

== ENCOUNTER → 2025-01-12 12:16 | Outpatient (BNV) | payer OTHER, SELFPAY | PROVIDERS: PCP Family Medicine; Visit Provider Radiology Diagnostic Radiology | DX: Z96.641 Presence of right artificial hip joint (principal) | CPT/HCPCS: 72170 ==

== ENCOUNTER → 2025-01-13 08:36 | Outpatient (BNV) | payer OTHER, SELFPAY | PROVIDERS: PCP Family Medicine; Visit Provider Internal Medicine Cardiovascular Disease | DX: R00.0 Tachycardia, unspecified (principal) | CPT/HCPCS: 93010 ==

== ENCOUNTER 2025-01-18 14:42 | Outpatient (AMB) | payer OTHER, SELFPAY ==
--- NOTE | 2025-01-18 15:04 | MHC.OFFVIS ---
Intake Visit Reasons: OV-R ISAAC 01/12/25 w/NE bandage change Intake Note: Janak is a 49 year old male who presents today for an unscheduled post operative appointent s/p 01/12/25. Patient reports that he is doing well, his bandage is saturated with fluid which is why he is attending this visit today. He is not having any increased pain, fevers or concern for infection. Allergies No Known Allergies Allergy (Verified 01/18/25 15:08) HPI HPI OV-R ISAAC 01/12/25 w/NE bandage change: Details: Six days status post right hip replacement doing well. No complaints. [facility] Medical History (Updated 01/15/25 @ 00:02 by Alicia Garcia) SARAH (obstructive sleep apnea) Refusal of blood transfusion for reasons of conscience Low testosterone in male Low back pain DVT (deep venous thrombosis) (~08/2024) Hx of renal calculi (~2009) Back pain Arthritis Elevated cholesterol HTN (hypertension) Localized osteoarthritis of left knee Surgical History (Updated 01/13/25 @ 11:19 by Laly Perkins PA-C) S/P hardware removal (08/25/24) History of ankle surgery Hx of knee surgery Femur fracture, right Social History Household Members: Significant Other Housing: House Are you a primary healthcare advisory services manager to a significant other at home: No Do you presently have visiting nurse or other home services: No Comment: COUNTS CORRECT Patient Tobacco Use Status: Never used Tobacco Second Hand Smoke Exposure: No service: No Current occupational status: employed Current occupation: [employer] Physical Exam Extrem Other: Incision clean dry and intact Results Reviewed Results Reviewed: I personally reviewed relevant radiographs. Right ISAAC in expected post operative position with no hardware complications or evidence of loosening Assessment & Plan Assessment & Plan (1) S/P total right hip arthroplasty: Code(s): Z96.641 - Presence of right artificial hip joint Category: Surgical Plan: Doing well status post right hip arthroplasty. Walking with minimal gait disturbance. He is on Lovenox and we will see him back in 10 days for staple removal Orders: Orders XR pelvis 1-2V Today M25.559 - Pain in unspecified hip Coding Level of Care Code Global (58341) Diagnoses S/P total right hip arthroplasty Z96.641
== END 2025-01-18 15:30 | disposition home or self-care (01) ==
LOC: HO.HOS 14:42
PROVIDERS: PCP Family Medicine; Visit Provider Orthopaedic Surgery
DX: Z96.641 Presence of right artificial hip joint (principal)
CPT/HCPCS: 99024

== ENCOUNTER 2025-01-18 14:42 | Outpatient (REF) | payer OTHER, SELFPAY ==
--- NOTE | ~2025-01-18 | XR_ITS ---
EXAMINATION: XR PELVIS CLINICAL INFORMATION: M25.559 - Pain in unspecified hip COMPARISON: None available. TECHNIQUE: AP view of the pelvis. FINDINGS: There is a total right hip prosthesis with immediate postoperative changes visualized along the right lateral hip. The prosthetic components are in satisfactory alignment. No periprosthetic bony abnormality seen. XR/XR pelvis 1-2V IMPRESSION: Status post right hip prosthesis with immediate postoperative changes noted. The prosthetic components are in satisfactory alignment. Electronically signed by: Gigi Anderson MD 01/19/2025 09:46 AM EDT
--- OUTSIDE RECORDS SUMMARY | 2025-01-18 17:28 | XMS_ITS | Clinical Summary ---
Author Organization [employer] [facility] [employer] Address [address] [facility] [place] [address] Care Team Providers Care Manufacturing Associate Name Role Phone Pcp, No Primary Care Provider [phone] Allergies No known active allergies Medications Eliquis [...] Adults 18 yrs or above (or HM Modifier)([facility]) 1973 Hepatitis C Virus Infection in Adolescents and Adults: Screening (or Modifier) ([facility]) 1991 SDDE Screening Reminder: Dia vargas for all adults ([facility]) 1991 DTaP/Tdap/Td Vaccines ([facility]) (1 - Tdap) 1992 Lipid Screening: Every 5 yrs for Men aged 35+ (or HM Modifier) ([facility]) 2009 Colorectal Cancer Screening 45 -75 Yrs (or HM Modifier ) 2018 Colorectal Cancer: FLEXIBLE SIGMOIDOSCOPY Screening every 5 yrs 2018 Colorectal Cancer: Fecal Imm unochemical Test (FIT) Annually [facility] 2018 Colorectal Cancer: High-sens itivity gFOBT Screening Annually [facility] 2018 Colorectal Cancer: Stool Col oguard Screening every 3 yrs 2018 Colorectal Cancer:CT Colonography Screening every 5 yr s 2018 Pneumococcal Vaccination Scr eening: Patients 50+ yrs of age ([facility]) (1 of 1 - PCV) 2023 Zoster/Shingles Vaccine Seri es Screening: Adults aged 18+ yrs (or HM Modifiers)([facility]) (1 of 2) 2023 COVID-19 Vaccine Screening: Initial Series and Booster Status ([facility]) ( - 2023- season) 2024 Flu Vaccination: Yearly for ages 18mos through 64 years (or Modifier)([facility]) 05/07/2025 [employer] Devices Not on file Care Teams Manufacturing Associate Relationship Specialty Start Date End Date Pcp, No PCP - General Family Medicine 09/19/24
--- OUTSIDE RECORDS SUMMARY | 2025-01-18 17:28 | XMS_ITS | Data Portability ---
Author Organization MD - [facility], [facility]- Address [address] [place] [address] Assessment No assessment recorded. Plan of Treatment [...] By Organization Details Last Modified Time 03/16/2019 [id number] knee arthritis: care instructions ssigman Not available [...] in ankle and foot Active Not Available [facility] 3 03:01:57 Hip pain [id number] Active Not Available [facility] 3 03:01:57 Inguinal hernia [id number] Active Not Available [facility] 3 03:01:57 Knee pain Active Not Available [facility] 3 03:01:57 Contusion of lower limb 88622501 Active Not Available [facility] 3 03:01:57 Closed fracture of femur 88862674 Active Not Available [facility] 3 03:01:57 Problem Notes None recorded. Procedures [...] Updated DateTime 03/16/2019 180.34 cm 33.5 kg/m2 938675.17 g Shawna Shiela [facility] 03/16/2019 12:46:22 Social History Question Answer Notes LastModified by Organizat ion Details LastModified Time Tobacco Smoking Status Never Smoker Shawna Kuo null, [facility] 03/19/2019 13:56:20 What Is Your Level Of [...] Blood Clots N Pacemaker N Anemia N Ulcers N Heart Attack ([place]) N Anxiety Disorder N Diabetes N Bleeding [...] SNOMED-CT Code Diagnosis ICD10 Code Diagnosis Note [id number] [place] [address] 09/15/2007 13:19:40 09/15/2007 13:29:35 [id number] [place] [address] 09/05/2007 09:34:31 09/05/2007 09:58:49 [id number] [place] [id number] 04/26/2008 13:16:04 04/26/2008 13:44:53 [id number] [place] [id number] 04/11/2009 14:58:41 04/11/2009 15:15:30 [id number] [place] [id number] 12/16/2009 13:19:42 12/16/2009 13:52:53 [id number] SARAH [place] Swapna [facility] [place] [address] 01/13/2010 13:38:50 01/13/2010 14:01:35 [id number] SARAH [place] [address] 02/06/2010 14:01:34 02/06/2010 14:32:40 [id number] Herson Kwong MD SARAH [facility] [address] [place] [address] 03/16/2019 12:45:14 03/16/2019 13:13:02 Osteoarthritis of knee [id number] M17.12 Health Concerns Section Related Observation LastModified by Organization Detai ls LastModified Time None Recorded Concern Status LastModified by Organization Details LastModified Time None Recorded Advance Directives Directive None Recorded Payers Encounter Date Sequence Insurance Name Policy Number Policy Reed Covered Member ID Reed Member ID Guarantor Name 04/11/2009 1 [place] [id number] Janak [place] Lindy [id number] Janak Lindy 12/16/2009 1 [place] [id number] Janak [place] Lindy [id number] Janak Lindy 01/13/2010 1 [place] [id number] Janak Israel [id number] Janak Israel 02/06/2010 1 [facility]: [facility] [id number] Janak Israel [id number] Janak Israel 03/16/2019 1 *SELF PAY* [...] for his undelrying osteoarthritis. Herson Kwong MD [address] [place] [address], [id number], [place] - [facility] 03/19/2019 07:36:58
== END 2025-01-18 14:43 | disposition home or self-care (01) ==
LOC: HO.HOSX 14:42
PROVIDERS: PCP Family Medicine; Visit Provider Orthopaedic Surgery
DX: M25.559 Pain in unspecified hip (principal); Z96.641 Presence of right artificial hip joint
CPT/HCPCS: 72170; 99212

== ENCOUNTER → 2025-01-18 15:00 | Outpatient (BNV) | payer OTHER, SELFPAY | PROVIDERS: PCP Family Medicine; Visit Provider Radiology Diagnostic Radiology | DX: M25.551 Pain in right hip (principal); Z96.641 Presence of right artificial hip joint | CPT/HCPCS: 72170 ==

== ENCOUNTER 2025-01-28 09:49 | Outpatient (AMB) | payer OTHER, SELFPAY ==
--- NOTE | 2025-01-28 09:59 | MHC.OFFVIS ---
Intake Visit Reasons: 2WK PO: R ISAAC w/NE 01/12/25 Intake Note: Janak is a 49 year old male who presents today for a post op operative appointment s/p right total hip arthroplasty 01/12/25 NE. Patient reports he has groin pain. Allergies No Known Allergies Allergy (Verified 01/28/25 09:59) HPI HPI 2WK PO: R ISAAC w/NE 01/12/25: Details: Mr. Israel this is a 49-year-old male who presents to the office today status post right total hip arthroplasty with Dr. Madrigal performed on 01/12/2025. He presents to the office today with no assistive devices for ambulation. Overall he is doing very well. He reports he continues to have some groin pain when he moves from sitting to standing position but after a few steps this resolves. He is attending outpatient physical therapy. [facility] Medical History (Updated 01/15/25 @ 00:02 by Alicia Garcia) SARAH (obstructive sleep apnea) Refusal of blood transfusion for reasons of conscience Low testosterone in male Low back pain DVT (deep venous thrombosis) (~08/2024) Hx of renal calculi (~2009) Back pain Arthritis Elevated cholesterol HTN (hypertension) Localized osteoarthritis of left knee Surgical History S/P hardware removal (08/25/24) History of ankle surgery Hx of knee surgery Femur fracture, right Social History Household Members: Significant Other Housing: House Are you a primary palliative care physician to a significant other at home: No Do you presently have visiting nurse or other home services: No 75 years or older and lives alone: No Comment: COUNTS CORRECT Patient Tobacco Use Status: Never used Tobacco Second Hand Smoke Exposure: No service: No Current occupational status: employed Current occupation: [employer] Review of Systems Const All systems reviewed & are unremarkable except as noted in HPI and below Physical Exam Const General: cooperative, healthy appearing and no acute distress Resp Effort & Inspection: normal respiratory effort and able to speak in complete sentences Cardio Rate: regular rate Peripheral pulses: Peripheral pulses 2+ throughout Skin Lesions: no lesions Rashes: no rashes Extrem Other: Right hip incision site clean dry and intact. Annika intact. No surrounding erythema or drainage. No signs of infection. NVI. Assessment & Plan Assessment & Plan (1) S/P total right hip arthroplasty: Code(s): Z96.641 - Presence of right artificial hip joint Category: Surgical Plan Mr. Israel this is a 49-year-old male who presents to the office today status post right total hip arthroplasty with Dr. Madrigal performed on 01/12/2025. He presents to the office today with no assistive devices for ambulation. Overall he is doing very well. He reports he continues to have some groin pain when he moves from sitting to standing position but after a few steps this resolves. He is attending outpatient physical therapy. While in the office today, annika were removed and Steri-Strips were applied. As previously stated, the patient is already attending outpatient physical therapy. He will follow up in [address] Madrigal, sooner if needed. Coding Level of Care Code Global (62605) Diagnoses S/P total right hip arthroplasty Z96.641
--- OUTSIDE RECORDS SUMMARY | 2025-01-28 11:01 | XMS_ITS | Data Portability ---
Author Organization [place] [facility]- Address [address] [place] [address] Assessment No assessment recorded. Plan of Treatment [...] By Organization Details Last Modified Time 03/16/2019 [id number] knee arthritis: care instructions ssigman Not available [...] in ankle and foot Active Not Available [facility] 3 03:01:57 Hip pain [id number] Active Not Available [facility] 3 03:01:57 Inguinal hernia [id number] Active Not Available [facility] 3 03:01:57 Knee pain Active Not Available [facility] 3 03:01:57 Contusion of lower limb 80116675 Active Not Available [facility] 3 03:01:57 Closed fracture of femur 50726006 Active Not Available [facility] 3 03:01:57 Problem Notes None recorded. Procedures [...] Updated DateTime 03/16/2019 180.34 cm 33.5 kg/m2 329309.17 g Shawna Shiela [facility] 03/16/2019 12:46:22 Social History Question Answer Notes LastModified by Organizat ion Details LastModified Time Tobacco Smoking Status Never Smoker Shawna Kuo null, [facility] 03/19/2019 13:56:20 What Is Your Level [...] N Pacemaker N Anemia N Heart Attack ([place]) N Ulcers N Anxiety Disorder N Diabetes [...] SNOMED-CT Code Diagnosis ICD10 Code Diagnosis Note [id number] [place] [address] 09/15/2007 13:19:40 09/15/2007 13:29:35 [id number] [place] [address] 09/05/2007 09:34:31 09/05/2007 09:58:49 [id number] [place] [address] 04/26/2008 13:16:04 04/26/2008 13:44:53 [id number] [place] [address] 04/11/2009 14:58:41 04/11/2009 15:15:30 [id number] [place] [address] 12/16/2009 13:19:42 12/16/2009 13:52:53 [id number] SARAH [place] [facility] [place] [address] 01/13/2010 13:38:50 01/13/2010 14:01:35 [id number] SARAH [place] [address] 02/06/2010 14:01:34 02/06/2010 14:32:40 [id number] Herson Kwong MD SARAH [facility] [address] [place] [address] 03/16/2019 12:45:14 03/16/2019 13:13:02 Osteoarthritis of knee [id number] M17.12 Health Concerns Section Related Observation LastModified by Organization Detai ls LastModified Time None Recorded Concern Status LastModified by Organization Details LastModified Time None Recorded Advance Directives Directive None Recorded Payers Encounter Date Sequence Insurance Name Policy Number Policy Reed Covered Member ID Reed Member ID Guarantor Name 04/11/2009 1 [place] [id number] Janak Del Rio Lindy [id number] Janak Lindy 12/16/2009 1 [place] [id number] Janak Del Rio Lindy [id number] Janak Lindy 01/13/2010 1 [place] [id number] Janak Israel [id number] Janak Israel 02/06/2010 1 [facility] [id number] Janak Israel [id number] Janak Israel 03/16/2019 1 *SELF PAY* [...] for his undelrying osteoarthritis. Herson Kwong MD [address] [place] [address], [address], [place] - [facility] 03/19/2019 07:36:58
--- OUTSIDE RECORDS SUMMARY | 2025-01-28 11:01 | XMS_ITS | Clinical Summary ---
Author Organization [facility] Address [address] [facility] [place] [address] Care Team Providers Care Clothing Sales Assistant Name Role Phone Pcp, No Primary Care Provider [phone] Allergies No known active allergies Medications Eliquis [...] Adults 18 yrs or above (or HM Modifier)([facility]) 1973 Hepatitis C Virus Infection in Adolescents and Adults: Screening (or Modifier) ([facility]) 1991 SDIA Screening Reminder: Dia vargas for all adults ([facility]) 1991 DTaP/Tdap/Td Vaccines ([facility]) (1 - Tdap) 1992 Lipid Screening: Every 5 yrs for Men aged 35+ (or HM Modifier) ([facility]) 2009 Colorectal Cancer Screening 45 -75 Yrs (or HM Modifier ) 2018 Colorectal Cancer: FLEXIBLE SIGMOIDOSCOPY Screening every 5 yrs 2018 Colorectal Cancer: Fecal Imm unochemical Test (FIT) Annually [facility] 2018 Colorectal Cancer: High-sens itivity gFOBT Screening Annually [facility] 2018 Colorectal Cancer: Stool Col oguard Screening every 3 yrs 2018 Colorectal Cancer:CT Colonography Screening every 5 yr s 2018 Pneumococcal Vaccination Scr eening: Patients 50+ yrs of age ([facility]) (1 of 1 - PCV) 2023 Zoster/Shingles Vaccine Seri es Screening: Adults aged 18+ yrs (or HM Modifiers)([facility]) (1 of 2) 2023 COVID-19 Vaccine Screening: Initial Series and Booster Status ([facility]) ( - 2023- season) 2024 Flu Vaccination: Yearly for ages 18mos through 64 years (or Modifier)([facility]) 05/07/2025 Medical Devices Not on file Care Teams Clothing Sales Assistant Relationship Specialty Start Date End Date Pcp, No PCP - General Family Medicine 09/19/24
== END 2025-01-28 10:11 | disposition home or self-care (01) ==
LOC: HO.HOS 09:50
PROVIDERS: PCP Family Medicine; Visit Provider Physician Assistant
DX: Z96.641 Presence of right artificial hip joint (principal)
CPT/HCPCS: 99024

== ENCOUNTER → 2025-01-28 09:49 | Outpatient (BNVA) | payer OTHER, SELFPAY | PROVIDERS: PCP Family Medicine; Visit Provider Physician Assistant | DX: Z47.1 Aftercare following joint replacement surgery (principal); Z96.641 Presence of right artificial hip joint | CPT/HCPCS: 99212 ==

== ENCOUNTER 2025-02-22 08:37 | Outpatient (AMB) | payer OTHER, SELFPAY ==
--- NOTE | 2025-02-22 08:39 | MHC.OFFVIS ---
Intake Visit Reasons: 6WK PO: R ISAAC w/NE 01/12/25 Intake Note: Janak is a 49 year old male who presents today for a post op operative appointment about 6 weeks s/p right total hip arthroplasty 01/12/25. Patient reports that he is doing well he is having some mild soreness in the hip with gait initiation which resolves with a few steps. He is asking if he can switch from Celebrex to Meloxicam, would need Rx. Allergies No Known Allergies Allergy (Verified 02/22/25 08:39) HPI HPI 6WK PO: R ISAAC w/NE 01/12/25: Details: Janak is a 49 year old male who presents today for a post op operative appointment about 6 weeks s/p right total hip arthroplasty 01/12/25. Patient reports that he is doing well he is having some mild soreness in the hip with gait initiation which resolves with a few steps. He is asking if he can switch from Celebrex to Meloxicam, would need Rx. [facility] Medical History SARAH (obstructive sleep apnea) Refusal of blood transfusion for reasons of conscience Low testosterone in male Low back pain DVT (deep venous thrombosis) (~08/2024) Hx of renal calculi (~2009) Back pain Arthritis Elevated cholesterol HTN (hypertension) Localized osteoarthritis of left knee Surgical History S/P hardware removal (08/25/24) History of ankle surgery Hx of knee surgery Femur fracture, right Social History Household Members: Significant Other Housing: House Are you a primary direct care worker to a significant other at home: No Do you presently have visiting nurse or other home services: No 75 years or older and lives alone: No Comment: COUNTS CORRECT Patient Tobacco Use Status: Never used Tobacco Second Hand Smoke Exposure: No service: No Current occupational status: employed Current occupation: [employer] Physical Exam Extrem Other: nl gait no pain with hip ROM Assessment & Plan Assessment & Plan (1) S/P total right hip arthroplasty: Code(s): Z96.641 - Presence of right artificial hip joint Category: Surgical Plan: Right hip doing well Continue PT and ROM as tolerated f/u 6 weeks Coding Level of Care Code Global (13411) Diagnoses S/P total right hip arthroplasty Z96.641
--- OUTSIDE RECORDS SUMMARY | 2025-02-22 08:45 | XMS_ITS | Data Portability ---
Author Organization [place] - [facility], [facility]- Address [address] [place] [address] Assessment No assessment recorded. Plan of Treatment [...] By Organization Details Last Modified Time 03/16/2019 [id number] knee arthritis: care instructions ssigman Not available [...] in ankle and foot Active Not Available [facility] 3 03:01:57 Pain of hip region 90558055 Active Not Available [facility] 3 03:01:57 Inguinal hernia 570947102 Active Not Available [facility] 3 03:01:57 Knee pain Active Not Available [facility] 3 03:01:57 Contusion of lower limb 65407748 Active Not Available [facility] 3 03:01:57 Closed fracture of femur 89862466 Active Not Available [facility] 3 03:01:57 Problem Notes None recorded. Procedures [...] Updated DateTime 03/16/2019 180.34 cm 33.5 kg/m2 349691.17 g Shawna Soaresbishop [facility] 03/16/2019 12:46:22 Social History Question Answer Notes LastModified by Organizat ion Details LastModified Time Tobacco Smoking Status Never Smoker Shawna Soaresbishop null, [facility] 03/19/2019 13:56:20 Auto Related Injury? No Information not available 03/19/2019 What Was The Date Of Your Most Recent Tobacco Screening? 03/19/2019 Information not available 04/30/2019 If Injured, Is Litigation Ongoing? No Information not available 03/19/2019 Work Related Injury? No Information not available 03/19/2019 Sex: Unknown Functional Status Question Answer Note LastModified by Organization D etails LastModified Time What is your level of alcohol consumption? None Information not available 03/19/2019 Are you currently employed? Yes Information not available 03/19/2019 Mental Status None recorded. Family History Nothing Reported. Medical History Condition Response Coronary Artery Disease N HIV or AIDS N Gout N Migraines N Thyroid Problems N Depression N Blood Clots N Lung Disease N Pacemaker N Anemia N Ulcers N Heart Attack ([place]) N Anxiety Disorder N Diabetes N Bleeding Disorder N Seizures/Epilepsy N Arthritis N Tuberculosis N Cancer N Stroke N Asthma N Leg or Foot Ulcers N Peripheral Vascular Disease N GERD/Reflux N Hepatitis N Liver Disease N Heart Disease N Rheumatoid Arthritis N Pulmonary Embolism N Hypertension N Osteoporosis N Kidney Disease N Past Encounters Encounter ID Performer Location Encounter Start Date Encounter Closed Date Diagnosis/Indication Diagnosis SNOMED-CT Code Diagnosis ICD10 Code Diagnosis Note [id number] Herson Kwong MD [address] [address] 09/15/2007 13:19:40 09/15/2007 13:29:35 [id number] Herson Kwong MD [address] [address] 09/05/2007 09:34:31 09/05/2007 09:58:49 [id number] Herson Kwong MD [address] [address] 04/26/2008 13:16:04 04/26/2008 13:44:53 [id number] Herson Kwong MD [address] [address] 04/11/2009 14:58:41 04/11/2009 15:15:30 [id number] Herson Kwong MD [address] [address] 12/16/2009 13:19:42 12/16/2009 13:52:53 [id number] Herson Kwong MD [address] [address] 01/13/2010 13:38:50 01/13/2010 14:01:35 [id number] Herson Kwong MD [address] [address] 02/06/2010 14:01:34 02/06/2010 14:32:40 [id number] Herson Kwong MD [facility] [address] [place] [address] 03/16/2019 12:45:14 03/16/2019 13:13:02 Osteoarthritis of knee [id number] M17.12 Health Concerns Section Related Observation LastModified by Organization Detai ls LastModified Time None Recorded Concern Status LastModified by Organization Details LastModified Time None Recorded Advance Directives Directive None Recorded Payers Encounter Date Sequence Insurance Name Policy Number Policy Reed Covered Member ID Reed Member ID Guarantor Name 04/11/2009 1 [facility] [id number] Janak Israel [id number] Janak Durandde 12/16/2009 1 [place] [id number] Janak Del Rio Lindy [id number] Janak Lindy 01/13/2010 1 [place] [id number] Janak R Lindy [id number] Janak Lindy 02/06/2010 1 [place] [id number] Janak Del Rio Lindy [id number] Janak Lindy 03/16/2019 1 *SELF PAY* Da clifton Israel Notes Date Note Type Note Provider [...] for his undelrying osteoarthritis. Herson Kwong MD [address] [place] [address], [phone], [place] - [facility] 03/19/2019 07:36:58
--- OUTSIDE RECORDS SUMMARY | 2025-02-22 08:45 | XMS_ITS | Clinical Summary ---
Author Organization [facility] Address [address] [facility] [place] [address] Care Team Providers Care Carpenter Mine Name Role Phone Pcp, No Primary Care Provider [phone] Allergies No known active allergies Medications Eliquis [...] Adults 18 yrs or above (or HM Modifier)([facility]) 1991 Hepatitis C Virus Infection in Adolescents and Adults: Screening (or Modifier) ([facility]) 1991 SDOH Screening Reminder: Dia vargas for all adults ([facility]) 1991 DTaP/Tdap/Td Vaccines ([facility]) (1 - Tdap) 1992 Lipid Screening: Every 5 yrs for Men aged 35+ (or HM Modifier) ([facility]) 2009 Colorectal Cancer Screening 45 -75 Yrs (or HM Modifier ) 2018 Colorectal Cancer: FLEXIBLE SIGMOIDOSCOPY Screening every 5 yrs 2018 Colorectal Cancer: Fecal Imm unochemical Test (FIT) Annually [facility] 2018 Colorectal Cancer: High-sens itivity gFOBT Screening Annually [facility] 2018 Colorectal Cancer: Stool Col oguard Screening every 3 yrs 2018 Colorectal Cancer:CT Colonography Screening every 5 yr s 2018 Pneumococcal Vaccination Scr eening: Patients 50+ yrs of age ([facility]) (1 of 1 - PCV) 2023 Zoster/Shingles Vaccine Seri es Screening: Adults aged 18+ yrs (or HM Modifiers)([facility]) (1 of 2) 2023 COVID-19 Vaccine Screening: Initial Series and Booster Status ([facility]) ( - 2023- season) 2024 Flu Vaccination: Yearly for ages 18mos through 64 years (or Modifier)([facility]) 05/07/2025 Medical Devices Not on file Care Teams Carpenter Mine Relationship Specialty Start Date End Date Pcp, No PCP - General Family Medicine 09/19/24
== END 2025-02-22 09:04 | disposition home or self-care (01) ==
LOC: HO.HOS 08:38
PROVIDERS: PCP Family Medicine; Visit Provider Orthopaedic Surgery
DX: Z96.641 Presence of right artificial hip joint (principal)
CPT/HCPCS: 99024

== ENCOUNTER → 2025-02-22 08:37 | Outpatient (BNVA) | payer OTHER, SELFPAY | PROVIDERS: PCP Family Medicine; Visit Provider Orthopaedic Surgery | DX: Z47.1 Aftercare following joint replacement surgery (principal); Z96.641 Presence of right artificial hip joint | CPT/HCPCS: 99212 ==

== ENCOUNTER 2025-04-01 08:18 | Outpatient (AMB) | payer OTHER, SELFPAY ==
--- NOTE | 2025-04-01 08:20 | MHC.OFFVIS ---
Vital Signs 04/01/25 08:24 Height 5 ft 10 in Weight 235 lb BMI 33.7 Intake Visit Reasons: 6WK PO: R ISAAC w/NE 01/12/25 Intake Note: Janak is a 49 year old male who presents today for a post operative appointment s/p Right ISAAC 01/12/25. Patient reports that he is dong very well with no concerns Allergies No Known Allergies Allergy (Verified 02/22/25 08:39) HPI HPI 6WK PO: R ISAAC w/NE 01/12/25: Details: Janak is a 49 year old male who presents today for a post operative appointment s/p Right ISAAC 01/12/25. Patient reports that he is dong very well with no concerns PFSH Medical History SARAH (obstructive sleep apnea) Refusal of blood transfusion for reasons of conscience Low testosterone in male Low back pain DVT (deep venous thrombosis) (~08/2024) Hx of renal calculi (~2009) Back pain Arthritis Elevated cholesterol HTN (hypertension) Localized osteoarthritis of left knee Surgical History S/P hardware removal (08/25/24) History of ankle surgery Hx of knee surgery Femur fracture, right Social History Household Members: Significant Other Housing: House Are you a primary career services director to a significant other at home: No Do you presently have visiting nurse or other home services: No 75 years or older and lives alone: No Comment: COUNTS CORRECT Patient Tobacco Use Status: Never used Tobacco Second Hand Smoke Exposure: No service: No Current occupational status: employed Current occupation: [employer] Physical Exam Vital Signs: BMI result Body Mass Index 33.7 Extrem Other: Normal gait. No pain with hip range of motion. Assessment & Plan Assessment & Plan (1) S/P total right hip arthroplasty: Code(s): Z96.641 - Presence of right artificial hip joint Category: Surgical Plan: Irvin is doing well. He is playing hockey. I cautioned him to be careful but he is taken it easy on the ice. He can follow up as needed. I anticipate he will return to see me in 4-6 months before he goes to [place] for the winter. Coding Level of Care Code Global (88097) Diagnoses S/P total right hip arthroplasty Z96.641
[2025-04-01 08:24] VITALS: BMI 33.7
--- OUTSIDE RECORDS SUMMARY | 2025-04-01 08:33 | XMS_ITS | Clinical Summary ---
Author Organization [facility] Address [address] [facility] [place] [address] Care Team Providers Care Mc Kay Machine Operator Name Role Phone Pcp, Taylor Primary Care Provider [phone] Allergies No known active allergies Medications Eliquis [...] 100 09/19/2024 12:43 PM EST Temperature 36.8 C (98.2 F) 09/19/2024 12:43 PM EST Respiratory Rate 16 09/19/2024 12:43 PM EST [...] Adults 18 yrs or above (or HM Modifier)([facility]) 1991 Hepatitis C Virus Infection in Adolescents and Adults: Screening (or Modifier) ([facility]) 1991 SDHI Screening Reminder: Dia vargas for all adults ([facility]) 1991 DTaP/Tdap/Td Vaccines ([facility]) (1 - Tdap) 1992 Colorectal Cancer Screening 45 -75 Yrs (or HM Modifier ) 2018 Colorectal Cancer: FLEXIBLE SIGMOIDOSCOPY Screening every 5 yrs 2018 Colorectal Cancer: Fecal Imm unochemical Test (FIT) Annually [facility] 2018 Colorectal Cancer: High-sens itivity gFOBT Screening Annually [facility] 2018 Colorectal Cancer: Stool Col oguard Screening every 3 yrs 2018 Colorectal Cancer:CT Colonography Screening every 5 yr s 2018 Pneumococcal Vaccination Scr eening: Patients 50+ yrs of age ([facility]) (1 of 1 - PCV) 2023 Zoster/Shingles Vaccine Seri es Screening: Adults aged 18+ yrs (or HM Modifiers)([facility]) (1 of 2) 2023 COVID-19 Vaccine Screening: Initial Series and Booster Status ([facility]) ( - 2023- season) 2024 Flu Vaccination: Yearly for ages 18mos through 64 years (or Modifier)([facility]) 05/07/2025 Medical Devices Not on file Care Teams Mc Kay Machine Operator Relationship Specialty Start Date End Date Pcp, No PCP - General Family Medicine 09/19/24
== END 2025-04-01 09:01 | disposition home or self-care (01) ==
LOC: HO.HOS 08:19
PROVIDERS: PCP Family Medicine; Visit Provider Orthopaedic Surgery
DX: Z96.641 Presence of right artificial hip joint (principal)
CPT/HCPCS: 99024

== ENCOUNTER → 2025-04-01 08:18 | Outpatient (BNVA) | payer OTHER, SELFPAY | PROVIDERS: PCP Family Medicine; Visit Provider Orthopaedic Surgery | DX: Z96.641 Presence of right artificial hip joint (principal); Z98.890 Other specified postprocedural states | CPT/HCPCS: 99212 ==

== ENCOUNTER 2025-04-19 09:56 | Outpatient (REF) | payer OTHER, SELFPAY ==
--- NOTE | ~2025-04-19 | XR_ITS ---
CLINICAL HISTORY: M54.50 - Low back pain, unspecified --- Additional Notes or Special Instructions: 1 AP view and lateral flex ex films 5 views lumbar spine Comparison: None provided Findings: Straightening of the normal lumbar lordosis. Near-complete disc space loss at L4-5 and L5-S1. No acute fracture or acute malalignment. Facet hypertrophy within the lower lumbar spine. Impression: Advanced degenerative changes. No acute process. This document has been electronically signed by: Josh Nix MD on 04/20/2025 12:59:48
--- NOTE | ~2025-04-19 | XR_ITS ---
CLINICAL HISTORY: M17.12 - Unilateral primary osteoarthritis, left knee Standing AP view of both knees Comparison: None provided Findings: Severe tricompartmental degenerative change of the left. Mild medial compartment joint space narrowing on the right. No joint effusion. No radiopaque foreign body. IMPRESSION: 1. No acute findings. 2. Degenerative changes as detailed. This document has been electronically signed by: Josh Nix MD on 04/20/2025 12:58:34
--- NOTE | ~2025-04-19 | XR_ITS ---
CLINICAL HISTORY: M25.559 - Pain in unspecified hip Single view of the pelvis Comparison: DX/SR - XR PELVIS 1-2V - 01/18/25 15:00 EDT Findings: The right total hip arthroplasty is intact. The left femoral-acetabular joint demonstrates moderate degenerative change. No acute process. Impression: No acute process. Intact right hip arthroplasty. Moderate degenerative change of the left This document has been electronically signed by: Josh Nix MD on 04/20/2025 12:44:31
--- NOTE | ~2025-04-19 | XR_ITS ---
CLINICAL HISTORY: M17.12 - Unilateral primary osteoarthritis, left knee 2 view left knee Comparison: None provided Findings: Bones intact. No dislocations. Severe tricompartmental degenerative change. Small knee joint effusion. Suprapatellar edema. Impression: Advanced degenerative changes. No definite acute process. This document has been electronically signed by: Josh Nix MD on 04/20/2025 12:57:31
== END 2025-04-19 09:57 | disposition home or self-care (01) ==
LOC: HO.XRAY 09:56
PROVIDERS: PCP Family Medicine; Visit Provider Internal Medicine
DX: M54.50 Low back pain, unspecified (principal); Z96.641 Presence of right artificial hip joint; M17.12 Unilateral primary osteoarthritis, left knee
CPT/HCPCS: 72114; 72170; 73562; 73565; 99212

== ENCOUNTER 2025-04-19 09:56 | Outpatient (AMB) | payer OTHER, SELFPAY ==
--- NOTE | 2025-04-19 10:01 | A.OFFVIS_ITS ---
Vital Signs 04/19/25 10:02 Height 5 ft 10 in Weight 244 lb BMI 35.0 BP 147/86 H Blood Pressure Location Lt brachial Position Sitting Respiration 16 Pulse 101 H Pulse Source Pulse Oximeter Pulse Oximetry (%) 97 Oxygen Delivery Method Room Air Intake Visit Reasons: PRP discussion patient req/YADIRA 2023 Allergies No Known Allergies Allergy (Verified 04/19/25 10:03) Medication List - Last Reconciled 04/19/25 by Adela Merchant LPN acetaminophen 650 mg (2 x 325 mg) PO Q6H PRN 30 days celecoxib 200 mg PO BID 30 days docusate sodium 100 mg PO BID 30 days lisinopril-hydrochlorothiazide 10-12.5 mg 1 tab PO DAILY minoxidil 2.5 mg PO DAILY [Raised toilet seat duration - 99 days] [SHOWER CHAIR As directed duration 99 days] tamoxifen 10 mg PO DAILY testosterone cypionate (Depo-Testosterone) 100 mg IM QWEEK walker Folding Front wheeled walker duration 99 days HPI HPI PRP discussion patient req/YADIRA 2023: Details: History of Present Illness The patient is a 49-year-old male presenting for follow-up after total hip replacement and to address lower back and knee pain. The patient reports a history of lower back pain that began after a fall while skating approximately two weeks ago. He describes a sensation of numbness in his legs following the fall, which persists during physical activities such as skating. The patient has a history of chiropractic treatment for back pain, which included x-rays revealing compressed discs, but this treatment was ineffective. The patient also reports knee pain, particularly in the left knee, which has a history of ACL, MCL, and meniscus surgeries performed twice, ten years apart. The patient experiences increased pain and weakness in the knee during activities such as skating, and has been advised that PRP injections may be beneficial. The patient has a history of hip pain, previously treated with PRP injections and ultimately resolved with surgery. He reports no current issues with the hip following the surgical intervention. Pain Description - Onset: Lower back pain began after a fall while skating two weeks ago. - Quality: Numbness in legs associated with lower back pain. - Location: Lower back with radiation to legs. - Exacerbating factors: Physical activities such as skating. - Knee pain: Increased during activities, history of ACL, MCL, and meniscus surgeries. Physical Exam - Appears afebrile. - Alert and oriented. - Mood and affect appropriate. - Follows and participates in conversation appropriately. - Respiratory effort is unlabored. - Able to transition from sit to stand unassisted. - Ambulates with bilaterally normal heel strike and toe off. - Able to stand and walk on toes and heels. Results Pain Management - Affect: Pain impacts physical activities such as skating. - Analgesia: PRP injections considered for knee pain management. - Activities of Daily Living: Pain affects skating and physical activities. [facility] Medical History (Updated 04/19/25 @ 10:29 by Jatin Farnsworth MD) SARAH (obstructive sleep apnea) Refusal of blood transfusion for reasons of conscience Low testosterone in male Low back pain DVT (deep venous thrombosis) (~08/2024) Hx of renal calculi (~2009) Back pain Arthritis Elevated cholesterol HTN (hypertension) Localized osteoarthritis of left knee Surgical History S/P hardware removal (08/25/24) History of ankle surgery Hx of knee surgery Femur fracture, right Social History Household Members: Significant Other Housing: House Are you a primary palliative care nurse practitioner to a significant other at home: No Do you presently have visiting nurse or other home services: No 75 years or older and lives alone: No Comment: COUNTS CORRECT Patient Tobacco Use Status: Never used Tobacco Second Hand Smoke Exposure: No service: No Current occupational status: employed Current occupation: [employer] Physical Exam Vital Signs: Last Vital Signs Pulse 101 H 04/19/25 10:02 Resp 16 04/19/25 10:02 BP 147/86 H 04/19/25 10:02 Pulse Ox 97 04/19/25 10:02 Oxygen Delivery Method Room Air 04/19/25 10:02 BMI result Body Mass Index 35.0 Assessment & Plan Assessment & Plan (1) Low back pain: Code(s): M54.50 - Low back pain, unspecified Category: Medical (2) Localized osteoarthritis of left knee: Code(s): M17.12 - Unilateral primary osteoarthritis, left knee Category: Medical Plan Plan - Order physical therapy of the knee and lower back before considering MR imaging. - Schedule x-rays for lower back to assess for instability. - Plan for PRP injection in the left knee to address pain and weakness. - Consider MRI for lower back if symptoms persist after physical therapy. Patient was informed and verbally consented to the use of an ambient scribe for clinic note documentation during this visit. Discussion Notes I discussed with the patient the plan to order physical therapy to meet insurance requirements for MRI approval, and the need for x-rays to assess for instability in the lower back and knees. We also discussed the option of PRP injection for the left knee and the potential need for an MRI if symptoms persist. Patient Instructions - Attend the scheduled physical therapy session. - Complete x-rays for lower back and knees as scheduled. - Follow up for PRP injection appointment for the left knee. - Monitor symptoms and report any changes or worsening. Orders: Orders XR knee standing BI 04/19/25 M17.12 - Unilateral primary osteoarthritis, left knee XR knee LT 3V 04/19/25 M17.12 - Unilateral primary osteoarthritis, left knee XR lumbar spine 6V w bending 04/19/25 M54.50 - Low back pain, unspecified PT Evaluation and Treatment 04/19/25 M54.50 - Low back pain, unspecified Coding Level of Care Code Est Pt Level 4 (40363) Diagnoses Low back pain M54.50 Localized osteoarthritis of left knee M17.12
[2025-04-19 10:02] VITALS: BP 147/86; PULSE 101; RESP 16; O2SAT 97; BMI 35.0
--- OUTSIDE RECORDS SUMMARY | 2025-04-19 10:33 | XMS_ITS | Data Portability ---
Author Organization ID - [facility], [facility]- Address [address] [place] [address] Assessment No assessment recorded. Plan of Treatment [...] By Organization Details Last Modified Time 03/16/2019 [id number] knee arthritis: care instructions ssigman Not available [...] pelvi s No observ ation record ed. [email or web address] Not Available 02/23 12:46:31 02/24/20 16 06/13/2006 [...] in ankle and foot Active Not Available [facility] 3 03:01:57 Pain of hip region 29198711 Active Not Available [facility] 3 03:01:57 Inguinal hernia 796500448 Active Not Available [facility] 3 03:01:57 Knee pain Active Not Available [facility] 3 03:01:57 Contusion of lower limb 47607411 Active Not Available [facility] 3 03:01:57 Closed fracture of femur 28586074 Active Not Available [facility] 3 03:01:57 Problem Notes None recorded. Medical Equipment None Reported. [...] Updated DateTime 03/16/2019 180.34 cm 33.5 kg/m2 884369.17 g Shawna Kuo [place] - [facility] 03/16/2019 12:46:22 Social History Question Answer Notes LastModified by Organizat ion Details LastModified Time Tobacco Smoking Status Never Smoker Shawna Kuo null, [place] - [facility] 03/19/2019 13:56:20 Auto Related Injury? No Information [...] N Pacemaker N Anemia N Heart Attack (MD) N Ulcers N Anxiety Disorder N Diabetes [...] SNOMED-CT Code Diagnosis ICD10 Code Diagnosis Note [id number] Herson Kwong MD [address] [address] 09/15/2007 13:19:40 09/15/2007 13:29:35 [id number] Herson Kwong MD [address] [address] 09/05/2007 09:34:31 09/05/2007 09:58:49 [id number] Herson Kwong MD [address] [address] 04/26/2008 13:16:04 04/26/2008 13:44:53 [id number] Herson Kwong MD [address] [address] 04/11/2009 14:58:41 04/11/2009 15:15:30 [id number] Herson Kwong MD [address] [address] 12/16/2009 13:19:42 12/16/2009 13:52:53 [id number] Herson Kwong MD [address] [address] 01/13/2010 13:38:50 01/13/2010 14:01:35 [id number] Herson Kwong MD [address] [address] 02/06/2010 14:01:34 02/06/2010 14:32:40 [id number] Herson Kwong MD [facility] [address] [place] [address] 03/16/2019 12:45:14 03/16/2019 13:13:02 Osteoarthritis of knee [id number] M17.12 Health Concerns Section Related Observation LastModified by Organization Detai ls LastModified Time None Recorded Concern Status LastModified by Organization Details LastModified Time None Recorded Advance Directives Directive None Recorded Payers Insurance Date Sequence Insurance Name Policy Number Policy Reed Covered Member ID Reed Member ID Guarantor Name 05/22/2014 1 [facility] ([facility]) Janak Israel [id number] Janak Israel 02/22/2016 1 [facility]-ID: [facility] BLUE [id number] Janak Israel [id number] Janak Israel 03/16/2019 1 *SELF PAY* [...] for his undelrying osteoarthritis. Herson Kwong MD [address] [place] [address], [id number], [facility] - [facility] 03/19/2019 07:36:58
--- OUTSIDE RECORDS SUMMARY | 2025-04-19 10:33 | XMS_ITS | Clinical Summary ---
Author Organization [employer] & [facility] [employer] Address 1 [facility] [place] [place] [address] Care Team Providers Care Medical Insurance Collector Name Role Phone Pcp, Taylor Primary Care Provider [phone] Allergies No known active allergies Medications Eliquis [...] Adults 18 yrs or above (or HM Modifier)([facility]) 1991 Hepatitis C Virus Infection in Adolescents and Adults: Screening (or Modifier) ([facility]) 1991 SDNM Screening Reminder: Dia vargas for all adults ([facility]) 1991 DTaP/Tdap/Td Vaccines ([facility]) (1 - Tdap) 1992 Colorectal Cancer Screening 45 -75 Yrs (or HM Modifier ) 2018 Colorectal Cancer: FLEXIBLE SIGMOIDOSCOPY Screening every 5 yrs 2018 Colorectal Cancer: Fecal Imm unochemical Test (FIT) Annually [facility] 2018 Colorectal Cancer: High-sens itivity gFOBT Screening Annually [facility] 2018 Colorectal Cancer: Stool Col oguard Screening every 3 yrs 2018 Colorectal Cancer:CT Colonography Screening every 5 yr s 2018 Pneumococcal Vaccination Scr eening: Patients 50+ yrs of age ([facility]) (1 of 1 - PCV) 2023 Zoster/Shingles Vaccine Seri es Screening: Adults aged 18+ yrs (or HM Modifiers)([facility]) (1 of 2) 2023 COVID-19 Vaccine Screening: Initial Series and Booster Status ([facility]) ( - 2023- season) 2024 Flu Vaccination: Yearly for ages 18mos through 64 years (or Modifier)([facility]) 05/07/2025 Medical Devices Not on file Care Teams Medical Insurance Collector Relationship Specialty Start Date End Date Pcp, No PCP - General Family Medicine 09/19/24
== END 2025-04-19 10:36 | disposition home or self-care (01) ==
LOC: HO.PMC 09:57
PROVIDERS: PCP Family Medicine; Visit Provider Internal Medicine
DX: M54.50 Low back pain, unspecified (principal); M17.12 Unilateral primary osteoarthritis, left knee
CPT/HCPCS: 99214

== ENCOUNTER → 2025-04-19 10:44 | Outpatient (BNV) | payer OTHER, SELFPAY | PROVIDERS: PCP Family Medicine; Visit Provider Radiology Vascular & Interventional Radiology | DX: M51.370 Other intervertebral disc degeneration, lumbosacral region with discogenic back pain only (principal); M25.462 Effusion, left knee; M16.12 Unilateral primary osteoarthritis, left hip; M17.0 Bilateral primary osteoarthritis of knee | CPT/HCPCS: 72114; 72170; 73565 ==

== ENCOUNTER 2025-04-22 06:06 | Outpatient (REF) | payer OTHER, SELFPAY ==
--- OUTSIDE RECORDS SUMMARY | 2025-04-22 06:08 | XMS_ITS | Data Portability ---
Author Organization [place] [facility]- Address [address] [place] [address] Assessment No assessment recorded. Plan of Treatment [...] By Organization Details Last Modified Time 03/16/2019 [id number] knee arthritis: care instructions ssigman Not available [...] in ankle and foot Active Not Available [facility] 3 03:01:57 Pain of hip region 08833462 Active Not Available [facility] 3 03:01:57 Inguinal hernia 019545247 Active Not Available [facility] 3 03:01:57 Knee pain Active Not Available [facility] 3 03:01:57 Contusion of lower limb 83057735 Active Not Available [facility] 3 03:01:57 Closed fracture of femur 85041643 Active Not Available [facility] 3 03:01:57 Problem Notes None recorded. Medical [...] Updated DateTime 03/16/2019 180.34 cm 33.5 kg/m2 139850.17 g Shawna Kuo [place] - [facility] 03/16/2019 12:46:22 Social History Question Answer Notes LastModified by Organizat ion Details LastModified Time Tobacco Smoking Status Never Smoker Shawna Kuo null, [place] - [facility] 03/19/2019 13:56:20 Auto Related Injury? No Information [...] N Pacemaker N Anemia N Heart Attack (SD) N Ulcers N Anxiety Disorder N Diabetes [...] SNOMED-CT Code Diagnosis ICD10 Code Diagnosis Note [id number] Herson Kwong MD [address] [address] 09/15/2007 13:19:40 09/15/2007 13:29:35 [id number] Herson Kwong MD [address] [address] 09/05/2007 09:34:31 09/05/2007 09:58:49 [id number] Herson Kwong MD [address] [address] 04/26/2008 13:16:04 04/26/2008 13:44:53 [id number] Herson Kwong MD [address] [address] 04/11/2009 14:58:41 04/11/2009 15:15:30 [id number] Herson Kwong MD [address] [address] 12/16/2009 13:19:42 12/16/2009 13:52:53 [id number] Herson Kwong MD [address] [address] 01/13/2010 13:38:50 01/13/2010 14:01:35 [id number] Herson Kwong MD [address] [address] 02/06/2010 14:01:34 02/06/2010 14:32:40 [id number] Herson Kwong MD [facility] [address] [place] [address] 03/16/2019 12:45:14 03/16/2019 13:13:02 Osteoarthritis of knee 881845976 M17.12 Health Concerns Section Related Observation LastModified by Organization Detai ls LastModified Time None Recorded Concern Status LastModified by Organization Details LastModified Time None Recorded Advance Directives Directive None Recorded Payers Insurance Date Sequence Insurance Name Policy Number Policy Reed Covered Member ID Reed Member ID Guarantor Name 05/22/2014 1 [facility] ([facility]) Janak Israel [id number] Janak Israel 02/22/2016 1 [facility] BLUE [id number] Janak Israel [id number] Janak Israel 03/16/2019 1 *SELF PAY* [...] for his undelrying osteoarthritis. Herson Kwong MD [address] [place] [address], [phone], [facility] - [facility] 03/19/2019 07:36:58
--- OUTSIDE RECORDS SUMMARY | 2025-04-22 06:08 | XMS_ITS | Clinical Summary ---
Author Organization [employer] & [facility] [employer] Address 1 [facility] [email or web address] [address] Care Team Providers Care Director Employee Communications Name Role Phone Pcp, Taylor Primary Care Provider [phone] Allergies No known active allergies Medications Eliquis [...] Adults 18 yrs or above (or HM Modifier)([facility]) 1991 Hepatitis C Virus Infection in Adolescents and Adults: Screening (or Modifier) ([facility]) 1991 SDNE Screening Reminder: Dia vargas for all adults ([facility]) 1991 DTaP/Tdap/Td Vaccines ([facility]) (1 - Tdap) 1992 Colorectal Cancer Screening 45 -75 Yrs (or HM Modifier ) 2018 Colorectal Cancer: FLEXIBLE SIGMOIDOSCOPY Screening every 5 yrs 2018 Colorectal Cancer: Fecal Imm unochemical Test (FIT) Annually [facility] 2018 Colorectal Cancer: High-sens itivity gFOBT Screening Annually [facility] 2018 Colorectal Cancer: Stool Col oguard Screening every 3 yrs 2018 Colorectal Cancer:CT Colonography Screening every 5 yr s 2018 Pneumococcal Vaccination Scr eening: Patients 50+ yrs of age ([facility]) (1 of 1 - PCV) 2023 Zoster/Shingles Vaccine Seri es Screening: Adults aged 18+ yrs (or HM Modifiers)([facility]) (1 of 2) 2023 COVID-19 Vaccine Screening: Initial Series and Booster Status ([facility]) ( - 2023- season) 2024 Flu Vaccination: Yearly for ages 18mos through 64 years (or Modifier)([facility]) 05/07/2025 Medical Devices Not on file Care Teams Director Employee Communications Relationship Specialty Start Date End Date Pcp, No PCP - General Family Medicine 09/19/24
== END 2025-04-22 06:07 | disposition home or self-care (01) ==
LOC: CF 06:06
PROVIDERS: Visit Provider Internal Medicine
DX: Z13.89 Encounter for screening for other disorder (principal)

== ENCOUNTER 2025-04-29 06:17 | Outpatient (REF) | payer OTHER, SELFPAY ==
--- NOTE | ~2025-04-29 | FL_ITS ---
EXAMINATION: FL GUIDANCE ONLY HISTORY: M17.12 - Unilateral primary osteoarthritis, left knee COMPARISON: None available. TECHNIQUE: Fluoroscopy time: 0.1 minute. Cumulative Dose: 0.416 mGy. DAP: 0.88091 mGym2 Images: 1. FINDINGS: A single fluoroscopic spot film of the left knee demonstrates a needle in place and contrast material in the joint space. FL/FL guidance in treatment room IMPRESSION: Fluoroscopy during procedure. Please see procedure report for additional information. Electronically signed by: Miah Piedra MD 04/29/2025 03:53 PM EDT
--- OUTSIDE RECORDS SUMMARY | 2025-04-29 06:19 | XMS_ITS | Clinical Summary ---
Author Organization [facility] [employer] Address [address] [facility] [place] [address] Care Team Providers Care Divinity Teacher Name Role Phone Pcp, Taylor Primary Care Provider [phone] Allergies No known active allergies Medications Eliquis [...] Adults 18 yrs or above (or HM Modifier)([facility]) 1991 Hepatitis C Virus Infection in Adolescents and Adults: Screening (or Modifier) ([facility]) 1991 SDOR Screening Reminder: Dia vargas for all adults ([facility]) 1991 DTaP/Tdap/Td Vaccines ([facility]) (1 - Tdap) 1992 Colorectal Cancer Screening 45 -75 Yrs (or HM Modifier ) 2018 Colorectal Cancer: FLEXIBLE SIGMOIDOSCOPY Screening every 5 yrs 2018 Colorectal Cancer: Fecal Imm unochemical Test (FIT) Annually [facility] 2018 Colorectal Cancer: High-sens itivity gFOBT Screening Annually [facility] 2018 Colorectal Cancer: Stool Col oguard Screening every 3 yrs 2018 Colorectal Cancer:CT Colonography Screening every 5 yr s 2018 Pneumococcal Vaccination Scr eening: Patients 50+ yrs of age ([facility]) (1 of 1 - PCV) 2023 Zoster/Shingles Vaccine Seri es Screening: Adults aged 18+ yrs (or HM Modifiers)([facility]) (1 of 2) 2023 COVID-19 Vaccine Screening: Initial Series and Booster Status ([facility]) ( - 2023- season) 2024 Flu Vaccination: Yearly for ages 18mos through 64 years (or Modifier)([facility]) 05/07/2025 Medical Devices Not on file Care Teams Divinity Teacher Relationship Specialty Start Date End Date Pcp, No PCP - General Family Medicine 09/19/24
--- OUTSIDE RECORDS SUMMARY | 2025-04-29 06:19 | XMS_ITS | Data Portability ---
Author Organization [place] - [facility], [facility]- Address [address] [place] [address] Assessment No assessment recorded. Plan of Treatment [...] By Organization Details Last Modified Time 03/16/2019 [id number] knee arthritis: care instructions ssigman Not available [...] and foot Active Not Available [facility] 3 03:01:57 Pain of hip region 26594574 Active Not Available [facility] 3 03:01:57 Inguinal hernia 334718764 Active Not Available [facility] 3 03:01:57 Knee pain Active Not Available [facility] 3 03:01:57 Contusion of lower limb 85462717 Active Not Available [facility] 3 03:01:57 Closed fracture of femur 22546194 Active Not Available [facility] 3 03:01:57 Problem Notes None recorded. Medical [...] Updated DateTime 03/16/2019 180.34 cm 33.5 kg/m2 727410.17 g Shawna Kuo [place] - [facility] 03/16/2019 12:46:22 Social History Question Answer Notes LastModified by Organizat ion Details LastModified Time Tobacco Smoking Status Never Smoker Shawna Kuo null, [place] - [facility] 03/19/2019 13:56:20 Auto Related Injury? No [...] N Anemia N Ulcers N Heart Attack ([place]) N Anxiety Disorder N Diabetes N Bleeding [...] SNOMED-CT Code Diagnosis ICD10 Code Diagnosis Note [id number] Herson Kwong MD [address] [address] 09/15/2007 13:19:40 09/15/2007 13:29:35 [id number] Herson Kwong MD [address] [address] 09/05/2007 09:34:31 09/05/2007 09:58:49 [id number] Herson Kwong MD [address] [address] 04/26/2008 13:16:04 04/26/2008 13:44:53 [id number] Herson Kwong MD [address] [address] 04/11/2009 14:58:41 04/11/2009 15:15:30 [id number] Herson Kwong MD [address] [address] 12/16/2009 13:19:42 12/16/2009 13:52:53 [id number] Herson Kwong MD [address] [address] 01/13/2010 13:38:50 01/13/2010 14:01:35 [id number] Herson Kwong MD [address] [address] 02/06/2010 14:01:34 02/06/2010 14:32:40 [id number] Herson Kwong MD [facility] [address] [place] [address] 03/16/2019 12:45:14 03/16/2019 13:13:02 Osteoarthritis of knee [id number] M17.12 Health Concerns Section Related Observation LastModified by Organization Detai ls LastModified Time None Recorded Concern Status LastModified by Organization Details LastModified Time None Recorded Advance Directives Directive None Recorded Payers Insurance Date Sequence Insurance Name Policy Number Policy Reed Covered Member ID Reed Member ID Guarantor Name 05/22/2014 1 [facility] ([facility]) Janak Israel [id number] Janak Israel 02/22/2016 1 [facility]: [facility] BLUE [id number] Janak Israel [id number] Janak Israel 03/16/2019 1 *SELF PAY* [...] for his undelrying osteoarthritis. Herson Kwong MD [address] [place] [address], [phone], [facility] - [facility] 03/19/2019 07:36:58
== END 2025-04-29 06:18 | disposition home or self-care (01) ==
LOC: CF 06:17
PROVIDERS: Visit Provider Internal Medicine
DX: Z13.89 Encounter for screening for other disorder (principal)

== ENCOUNTER 2025-04-29 09:43 | Outpatient (AMB) | payer OTHER, SELFPAY ==
--- NOTE | 2025-04-29 09:45 | A.OFFVIS_ITS ---
Vital Signs 04/29/25 09:56 04/29/25 10:45 Height 5 ft 10 in 5 ft 10 in Weight 244 lb 244 lb BMI 35.0 35.0 BP 92/71 108/83 Blood Pressure Location Lt radial Lt radial Position Sitting Sitting Respiration 16 16 Pulse 111 H 90 Pulse Source Pulse Oximeter Pulse Oximeter Pulse Oximetry (%) 98 97 Oxygen Delivery Method Room Air Room Air Intake Visit Reasons: Left knee PRP w/ filter Allergies No Known Allergies Allergy (Verified 04/19/25 10:03) HPI HPI Left knee PRP w/ filter: Details: Patient presents for scheduled procedure. Denies any recent cough, cold, infection, fever or other significant changes in medical history since last office visit. [facility] Medical History (Updated 04/19/25 @ 10:29 by Jatin Farnsworth MD) SARAH (obstructive sleep apnea) Refusal of blood transfusion for reasons of conscience Low testosterone in male Low back pain DVT (deep venous thrombosis) (~08/2024) Hx of renal calculi (~2009) Back pain Arthritis Elevated cholesterol HTN (hypertension) Localized osteoarthritis of left knee Surgical History S/P hardware removal (08/25/24) History of ankle surgery Hx of knee surgery Femur fracture, right Social History Household Members: Significant Other Housing: House Are you a primary director critical care to a significant other at home: No Do you presently have visiting nurse or other home services: No 75 years or older and lives alone: No Comment: COUNTS CORRECT Patient Tobacco Use Status: Never used Tobacco Second Hand Smoke Exposure: No service: No Current occupational status: employed Current occupation: [employer] Physical Exam Vital Signs: Last Vital Signs Pulse 90 04/29/25 10:45 Resp 16 04/29/25 10:45 BP 108/83 04/29/25 10:45 Pulse Ox 97 04/29/25 10:45 Oxygen Delivery Method Room Air 04/29/25 10:45 BMI result Body Mass Index 35.0 Office Procedures Platelet Rich Plasma Injection PRP Joint Injection After informed written consent was obtained, pre-procedure oxygen saturation, heart rate, and blood pressure were recorded. An 18 gauge butterfly needle was used to obtain 50 mL of whole blood from the right antecubital fossa. This was then mixed with 9 mL anticoagulant citrate dextrose solution. The 60 mL mixture was counter balanced to within 1 g and spun at 3500 rpm for 10 minutes. Platelet poor plasma was then drawn using a bench top press model. 6 mL of slightly leukocyte rich PRP was isolated in a 10 cc syringe. The platelet poor plasma syringe was then connected to a protein concentrating filter. A vaclock syringe was also attached to the filter. The PPP was then flushed back and forth through the protein concentrating filter and 7 mL of A2M protein concentrate was isolated. Both the products were injected into the left knee joint after obtaining an arthrogram with 1 mL of Omnipaque 180. Prep: site was prepped using sterile technique Approach Used: medial parapatellar (With arthrogram) Procedure: The patient tolerated the procedure well XCELL Platelet Plasma - 0232T 60 mL w/ Filter All charges added?: Procedure code (CPT) selection complete Assessment & Plan Assessment & Plan (1) Localized osteoarthritis of left knee: Code(s): M17.12 - Unilateral primary osteoarthritis, left knee Category: Medical Plan Patient is status post left knee PRP injection with A2M. Patient tolerated procedure well and was discharged home in stable condition with discharge instructions. All questions were answered. We will follow-up via telephone or in clinic to assess response to therapy. A follow-up appointment was made during today's visit. Orders: Orders FL guidance in treatment room Today Carri Yan APRN, [employer]UST[employer] GROUNDSKEEPER M16.51 - Unilateral post-traumatic osteoarthritis, right hip AMB Platelet Rich Plasma (PRP) Injection Today Jatin Farnsworth MD M17.12 - Unilateral primary osteoarthritis, left knee Coding Level of Care Code Procedure Only Diagnoses Localized osteoarthritis of left knee M17.12 CPT Codes XCELL Kit 60mL Filter ([id number])
[2025-04-29 09:56] VITALS: BP 92/71; PULSE 111; RESP 16; O2SAT 98; BMI 35.0
[2025-04-29 10:45] VITALS: BP 108/83; PULSE 90; RESP 16; O2SAT 97; BMI 35.0
== END 2025-04-29 12:06 | disposition home or self-care (01) ==
LOC: HO.PMCPRC 09:43
PROVIDERS: PCP Family Medicine; Visit Provider Internal Medicine
DX: M17.12 Unilateral primary osteoarthritis, left knee (principal)
CPT/HCPCS: 0232T

== ENCOUNTER 2025-05-21 11:22 | Outpatient (AMB) | payer OTHER, SELFPAY ==
--- OUTSIDE RECORDS SUMMARY | 2025-05-21 11:25 | XMS_ITS | Clinical Summary ---
Author Organization [employer] [facility] [employer] Address 1 [facility] [place] [address] Care Team Providers Care Sewing Teacher Name Role Phone Pcp, Taylor Primary Care Provider [phone] Allergies No known active allergies Medications Eliquis [...] Adults 18 yrs or above (or HM Modifier)([facility]) 1991 Hepatitis C Virus Infection in Adolescents and Adults: Screening (or Modifier) ([facility]) 1991 SDAK Screening Reminder: Dia vargas for all adults ([facility]) 1991 DTaP/Tdap/Td Vaccines ([facility]) (1 - Tdap) 1992 Colorectal Cancer Screening 45 -75 Yrs (or HM Modifier ) 2018 Colorectal Cancer: FLEXIBLE SIGMOIDOSCOPY Screening every 5 yrs 2018 Colorectal Cancer: Fecal Imm unochemical Test (FIT) Annually [facility] 2018 Colorectal Cancer: High-sens itivity gFOBT Screening Annually [facility] 2018 Colorectal Cancer: Stool Col oguard Screening every 3 yrs 2018 Colorectal Cancer:CT Colonography Screening every 5 yr s 2018 Pneumococcal Vaccination Scr eening: Patients 50+ yrs of age ([facility]) (1 of 1 - PCV) 2023 Zoster/Shingles Vaccine Seri es Screening: Adults aged 18+ yrs (or HM Modifiers)([facility]) (1 of 2) 2023 COVID-19 Vaccine Screening: Initial Series and Booster Status ([facility]) ( - 2023- season) 2024 Flu Vaccination: Yearly for ages 18mos through 64 years (or Modifier)([facility]) 05/07/2025 Medical Devices Not on file Care Teams Sewing Teacher Relationship Specialty Start Date End Date Pcp, No PCP - General Family Medicine 09/19/24
--- NOTE | 2025-05-21 11:31 | MHC.OFFVIS ---
Vital Signs 05/21/25 11:32 Height 5 ft 10 in Weight 244 lb BMI 35.0 BP 131/80 Blood Pressure Location Lt brachial Position Sitting Respiration 16 Pulse 87 Pulse Source Pulse Oximeter Pulse Oximetry (%) 97 Oxygen Delivery Method Room Air Intake Visit Reasons: Follow Up Post PT Marine Habitat Resource Specialist Required: No Allergies No Known Allergies Allergy (Verified 05/21/25 11:33) Medication List - Last Reconciled 05/21/25 by Adela Merchant LPN acetaminophen 650 mg (2 x 325 mg) PO Q6H PRN 30 days celecoxib 200 mg PO BID 30 days docusate sodium 100 mg PO BID 30 days lisinopril-hydrochlorothiazide 10-12.5 mg 1 tab PO DAILY minoxidil 2.5 mg PO DAILY [Raised toilet seat duration - 99 days] [SHOWER CHAIR As directed duration 99 days] tamoxifen 10 mg PO DAILY testosterone cypionate (Depo-Testosterone) 100 mg IM QWEEK walker Folding Front wheeled walker duration 99 days HPI HPI Follow Up Post PT: Details: History of Present Illness The patient is a 49-year-old male presenting for follow-up after left knee PRP and A2M injection. The patient reports significant improvement in knee function, noting the best performance in physical activity since the procedure, with only mild soreness remaining. He plans to undergo another injection in August before traveling to [place] for the winter. 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 He experiences intermittent numbness and tingling in his legs, which he associates with nerve compression due to disc degeneration. The numbness is described as a tingling sensation extending from the buttocks down to the legs, occurring sporadically. The patient has not undergone any surgeries for his back condition and is currently managing symptoms with physical therapy and lifestyle modifications, including avoiding impact sports and engaging in swimming. He is awaiting an MRI to assess the extent of disc degeneration and potential nerve compression. Pain Description - Onset: Intermittent numbness and tingling in the legs - Quality: Tingling sensation - Location: From buttocks down to the legs - Exacerbating factors: High-impact activities - Relieving factors: Avoiding impact sports, swimming Physical Exam - Appears afebrile. - Alert and oriented. - Mood and affect appropriate. - Follows and participates in conversation appropriately. - Respiratory effort is unlabored. - Able to transition from sit to stand unassisted. - Ambulates with bilaterally normal heel strike and toe off. - Able to stand and walk on toes and heels. Results - X-rays: Showed significant multilevel degenerative disc disease without spinal instability Pain Management - Affect: No specific impact on mood discussed - Analgesia: Current pain levels not explicitly discussed; planning for future PRP injection - Adverse Effects: None reported - Activities of Daily Living: Avoiding impact sports, engaging in swimming - Aberrant Drug Related Behaviors: None reported [facility] Medical History (Updated 05/21/25 @ 11:44 by Jatin Farnsworth MD) SARAH (obstructive sleep apnea) Refusal of blood transfusion for reasons of conscience Low testosterone in male Low back pain DVT (deep venous thrombosis) (~08/2024) Hx of renal calculi (~2009) Back pain Arthritis Elevated cholesterol HTN (hypertension) Localized osteoarthritis of left knee Surgical History S/P hardware removal (08/25/24) History of ankle surgery Hx of knee surgery Femur fracture, right Social History Household Members: Significant Other Housing: House Are you a primary direct care staffer to a significant other at home: No Do you presently have visiting nurse or other home services: No 75 years or older and lives alone: No Comment: COUNTS CORRECT Patient Tobacco Use Status: Never used Tobacco Second Hand Smoke Exposure: No service: No Current occupational status: employed Current occupation: [employer] Physical Exam Vital Signs: Last Vital Signs Pulse 87 05/21/25 11:32 Resp 16 05/21/25 11:32 BP 131/80 05/21/25 11:32 Pulse Ox 97 05/21/25 11:32 Oxygen Delivery Method Room Air 05/21/25 11:32 BMI result Body Mass Index 35.0 Assessment & Plan Assessment & Plan (1) 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 - Plan for another PRP knee injection in August before the patient travels to [place]. - Continue physical therapy and lifestyle modifications, including avoiding impact sports and engaging in swimming. - Consider cortisone injections to manage symptoms and delay the need for surgical intervention. Patient was informed and verbally consented to the use of an ambient scribe for clinic note documentation during this visit. Discussion Notes I discussed with the patient the findings of the x-rays, which showed significant multilevel degenerative disc disease without spinal instability. We talked about the potential need for future surgical intervention if symptoms worsen, but for now, we will focus on conservative management including physical therapy and lifestyle modifications. I recommended scheduling an MRI to better assess the extent of disc degeneration and nerve compression. We also planned for another PRP injection in August before the patient travels to [place]. Patient Instructions - Schedule and attend MRI appointment to assess back condition. - Plan for another PRP injection in August before traveling to [place]. - Continue physical therapy and avoid high-impact activities. - Engage in swimming as a low-impact exercise option. 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
[2025-05-21 11:32] VITALS: BP 131/80; PULSE 87; RESP 16; O2SAT 97; BMI 35.0
== END 2025-05-21 11:53 | disposition home or self-care (01) ==
LOC: HO.PMC 11:22
PROVIDERS: PCP Family Medicine; Visit Provider Internal Medicine
DX: M51.360 Other intervertebral disc degeneration, lumbar region with discogenic back pain only (principal)
CPT/HCPCS: 99213

== ENCOUNTER → 2025-05-21 11:22 | Outpatient (BNVA) | payer OTHER, SELFPAY | PROVIDERS: PCP Family Medicine; Visit Provider Internal Medicine | DX: M51.360 Other intervertebral disc degeneration, lumbar region with discogenic back pain only (principal) | CPT/HCPCS: 99212 ==

== ENCOUNTER 2025-06-23 09:35 | Outpatient (AMB) | payer OTHER, SELFPAY ==
[2025-06-23 09:39] VITALS: BP 110/74; PULSE 91; RESP 16; O2SAT 98; BMI 34.9
--- NOTE | 2025-06-23 09:39 | A.OFFVIS_ITS ---
Vital Signs 06/23/25 09:39 Height 5 ft 10 in Weight 243 lb BMI 34.9 BP 110/74 Blood Pressure Location Lt brachial Position Sitting Respiration 16 Pulse 91 Pulse Source Pulse Oximeter Pulse Oximetry (%) 98 Oxygen Delivery Method Room Air Intake Visit Reasons: s/p left knee PRP Inspector Quality Assurance Required: No Allergies No Known Allergies Allergy (Verified 06/23/25 09:41) Medication List - Last Reconciled 06/23/25 by Adela Merchant LPN acetaminophen 650 mg (2 x 325 mg) PO Q6H PRN 30 days celecoxib 200 mg PO BID 30 days docusate sodium 100 mg PO BID 30 days lisinopril-hydrochlorothiazide 10-12.5 mg 1 tab PO DAILY minoxidil 2.5 mg PO DAILY [Raised toilet seat duration - 99 days] [SHOWER CHAIR As directed duration 99 days] tamoxifen 10 mg PO DAILY testosterone cypionate (Depo-Testosterone) 100 mg IM QWEEK walker Folding Front wheeled walker duration 99 days HPI HPI s/p left knee PRP: Details: History of Present Illness The patient is a 49-year-old male presenting with low back pain. Despite c ompleting six sessions of physical therapy focusing on core and trunk muscles, the patient reports no significant relief from the low back pain. He also reports subjective weakness in the left lower extremity, which aligns with the L4-5 and L5-S1 myotomes. Additionally, the patient is experiencing knee pain and has a second PRP injection scheduled before his trip to [place] in August. He participates in activities such as playing hockey, which may exacerbate his musculoskeletal issues. Pain Description - Onset: Persistent low back pain despite physical therapy - Quality: Associated with subjective weakness in the left lower extremity - Exacerbating factors: Physical activities such as playing hockey Physical Exam - Neurological: Patient able to stand on toes with left side weakness (L5/S1), unable to stand on left heel (L4/5) [facility] Medical History (Updated 05/21/25 @ 11:44 by Jatin Farnsworth MD) SARAH (obstructive sleep apnea) Refusal of blood transfusion for reasons of conscience Low testosterone in male Low back pain DVT (deep venous thrombosis) (~08/2024) Hx of renal calculi (~2009) Back pain Arthritis Elevated cholesterol HTN (hypertension) Localized osteoarthritis of left knee Surgical History S/P hardware removal (08/25/24) History of ankle surgery Hx of knee surgery Femur fracture, right Social History Household Members: Significant Other Housing: House Are you a primary residential child care counselor to a significant other at home: No Do you presently have visiting nurse or other home services: No 75 years or older and lives alone: No Comment: COUNTS CORRECT Patient Tobacco Use Status: Never used Tobacco Second Hand Smoke Exposure: No service: No Current occupational status: employed Current occupation: [employer] Physical Exam Vital Signs: Last Vital Signs Pulse 91 06/23/25 09:39 Resp 16 06/23/25 09:39 BP 110/74 06/23/25 09:39 Pulse Ox 98 06/23/25 09:39 Oxygen Delivery Method Room Air 06/23/25 09:39 BMI result Body Mass Index 34.9 Assessment & Plan Assessment & Plan (1) 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 1. Low Back Pain - Lumbar spine MRI to be reordered due to persistent pain and left lower extremity weakness despite formal PT. 2. Left Lower Extremity Weakness - Weakness aligns with L4-5 and L5-S1 myotomes, MRI planned for further evaluation. 3. Knee Pain - Second PRP injection scheduled before trip to [place]. Discussion Notes I discussed with the patient the need to reorder the lumbar spine MRI due to the lack of response to physical therapy and the presence of left lower extremity weakness. We also reviewed the plan for a second PRP injection for knee pain before his trip to [place]. Patient Instructions - Follow up for lumbar spine MRI scheduling. - Attend scheduled PRP injection for knee pain before traveling. 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
--- OUTSIDE RECORDS SUMMARY | 2025-06-23 11:22 | XMS_ITS | Clinical Summary ---
Author Organization [employer] & [facility] Utility Funding Address [address] [facility] [email or web address] [address] Care Team Providers Care Discharge Planner Name Role Phone Pcp, Taylor Primary Care Provider [phone] Allergies No known active allergies Medications Eliquis [...] Adults 18 yrs or above (or HM Modifier)([facility]) 1991 Hepatitis C Virus Infection in Adolescents and Adults: Screening (or Modifier) ([facility]) 1991 SDIL Screening Reminder: Dia vargas for all adults ([facility]) 1991 DTaP/Tdap/Td Vaccines ([facility]) (1 - Tdap) 1992 Colorectal Cancer Screening 45 -75 Yrs (or HM Modifier ) 2018 Colorectal Cancer: FLEXIBLE SIGMOIDOSCOPY Screening every 5 yrs 2018 Colorectal Cancer: Fecal Imm unochemical Test (FIT) Annually [facility] 2018 Colorectal Cancer: High-sens itivity gFOBT Screening Annually [facility] 2018 Colorectal Cancer: Stool Col oguard Screening every 3 yrs 2018 Colorectal Cancer:CT Colonography Screening every 5 yr s 2018 Pneumococcal Vaccination Scr eening: Patients 50+ yrs of age ([facility]) (1 of 1 - PCV) 2023 Zoster/Shingles Vaccine Seri es Screening: Adults aged 18+ yrs (or HM Modifiers)([facility]) (1 of 2) 2023 Flu Vaccination: Yearly for ages 18mos through 64 years (or Modifier)([facility]) 05/07/2025 COVID-19 Vaccine Screening: Initial Series and Booster Status ([facility]) (2023- season) 2025 [employer] Devices Not on file Care Teams Discharge Planner Relationship Specialty Start Date End Date Pcp, No PCP - General Family Medicine 09/19/24
== END 2025-06-23 10:11 | disposition home or self-care (01) ==
LOC: HO.PMC 09:36
PROVIDERS: PCP Family Medicine; Visit Provider Internal Medicine
DX: M51.360 Other intervertebral disc degeneration, lumbar region with discogenic back pain only (principal)
CPT/HCPCS: 99213

== ENCOUNTER → 2025-06-23 09:35 | Outpatient (BNVA) | payer OTHER, SELFPAY | PROVIDERS: PCP Family Medicine; Visit Provider Internal Medicine | DX: M51.360 Other intervertebral disc degeneration, lumbar region with discogenic back pain only (principal) | CPT/HCPCS: 99212 ==

== ENCOUNTER 2025-09-09 06:34 | Outpatient (REF) | payer OTHER, SELFPAY ==
--- NOTE | ~2025-09-09 | FL_ITS ---
EXAMINATION: FL GUIDANCE ONLY HISTORY: M17.12 - Unilateral primary osteoarthritis, left knee COMPARISON: Correlation is made with plain films of the left knee dated 04/19/2025. TECHNIQUE: Fluoroscopy time: 11 seconds. Cumulative Dose: 1.00 mGy. DAP: 134.90 mGycm2 Images: 2. FINDINGS: Fluoroscopic spot films of the left knee demonstrate a needle in place and contrast material in the joint space. FL/FL guidance in treatment room IMPRESSION: Fluoroscopy during procedure. Please see procedure report for additional information. Electronically signed by: Miah Piedra MD 09/10/2025 07:00 AM [facility]
--- OUTSIDE RECORDS SUMMARY | 2025-09-09 06:37 | XMS_ITS | Clinical Summary ---
Author Organization [employer] & [facility] [employer] Address [address] [facility] [place] [address] Care Team Providers Care Cycle Counter Name Role Phone Pcp, Taylor Primary Care Provider [phone] Allergies No known active allergies Medications Eliquis [...] Adults 18 yrs or above (or HM Modifier)([facility]) 1991 Hepatitis C Virus Infection in Adolescents and Adults: Screening (or Modifier) ([facility]) 1991 SDVA Screening Reminder: Dia vargas for all adults ([facility]) 1991 DTaP/Tdap/Td Vaccines ([facility]) (1 - Tdap) 1992 Colorectal Cancer Screening 45 -75 Yrs (or HM Modifier ) 2018 Colorectal Cancer: FLEXIBLE SIGMOIDOSCOPY Screening every 5 yrs 2018 Colorectal Cancer: Fecal Imm unochemical Test (FIT) Annually [facility] 2018 Colorectal Cancer: High-sens itivity gFOBT Screening Annually [facility] 2018 Colorectal Cancer: Stool Col oguard Screening every 3 yrs 2018 Colorectal Cancer:CT Colonography Screening every 5 yr s 2018 Pneumococcal Vaccination Scr eening: Patients 50+ yrs of age ([facility]) (1 of 1 - PCV) 2023 Zoster/Shingles Vaccine Seri es Screening: Adults aged 18+ yrs (or HM Modifiers)([facility]) (1 of 2) 2023 Flu Vaccination: Yearly for ages 18mos through 64 years (or Modifier)([facility]) 05/07/2025 COVID-19 Vaccine Screening: Initial Series and Booster Status ([facility]) ( - 2024- season) 2025 [employer] Devices Not on file Care Teams Cycle Counter Relationship Specialty Start Date End Date Pcp, No PCP - General Family Medicine 09/19/24
== END 2025-09-09 06:35 | disposition home or self-care (01) ==
LOC: CF 06:34
PROVIDERS: Visit Provider Internal Medicine
DX: M17.12 Unilateral primary osteoarthritis, left knee (principal)
CPT/HCPCS: Q9967

== ENCOUNTER 2025-09-09 12:13 | Outpatient (AMB) | payer SELFPAY ==
[2025-09-09 12:20] VITALS: BP 104/74; PULSE 84; RESP 16; O2SAT 96
--- NOTE | 2025-09-09 12:20 | MHC.OFFVIS ---
Vital Signs 09/09/25 12:20 09/09/25 13:16 BP 104/74 117/77 Blood Pressure Location Lt brachial Lt brachial Position Sitting Sitting Respiration 16 16 Pulse 84 84 Pulse Source Pulse Oximeter Pulse Oximeter Pulse Oximetry (%) 96 96 Oxygen Delivery Method Room Air Room Air Intake Visit Reasons: left knee PRP w/ filter Mine Supervisor Required: No Allergies No Known Allergies Allergy (Verified 09/09/25 12:20) HPI HPI left knee PRP w/ filter: Details: Patient presents for scheduled procedure. Denies any recent cough, cold, infection, fever or other significant changes in medical history since last office visit. [facility] Medical History (Updated 05/21/25 @ 11:44 by Jatin Farnsworth MD) SARAH (obstructive sleep apnea) Refusal of blood transfusion for reasons of conscience Low testosterone in male Low back pain DVT (deep venous thrombosis) (~08/2024) Hx of renal calculi (~2009) Back pain Arthritis Elevated cholesterol HTN (hypertension) Localized osteoarthritis of left knee Surgical History S/P hardware removal (08/25/24) History of ankle surgery Hx of knee surgery Femur fracture, right Social History Household Members: Significant Other Housing: House Are you a primary critical care specialist to a significant other at home: No Do you presently have visiting nurse or other home services: No 75 years or older and lives alone: No Comment: COUNTS CORRECT Patient Tobacco Use Status: Never used Tobacco Second Hand Smoke Exposure: No service: No Current occupational status: employed Current occupation: [employer] Physical Exam Vital Signs: Last Vital Signs Pulse 84 09/09/25 13:16 Resp 16 09/09/25 13:16 BP 117/77 09/09/25 13:16 Pulse Ox 96 09/09/25 13:16 Oxygen Delivery Method Room Air 09/09/25 13:16 Office Procedures Platelet Rich Plasma Injection PRP Joint Injection After informed written consent was obtained, pre-procedure oxygen saturation, heart rate, and blood pressure were recorded. An 18 gauge butterfly needle was used to obtain 50 mL of whole blood from the right antecubital fossa. This was then mixed with 9 mL anticoagulant citrate dextrose solution. The 60 mL mixture was counter balanced to within 1 g and spun at 3500 rpm for 10 minutes. Platelet poor plasma was then drawn using a bench top press model. 6 mL of slightly leukocyte rich PRP was isolated in a 10 cc syringe. The platelet poor plasma syringe was then connected to a protein concentrating filter. A vaclock syringe was also attached to the filter. The PPP was then flushed back and forth through the protein concentrating filter and 5 mL of A2M protein concentrate was isolated. Both the products were injected into the left knee joint after obtaining an arthrogram with 1 mL of Omnipaque 180. Procedure: The patient tolerated the procedure well XCELL Platelet Plasma - [id number] 60 mL w/ Filter All charges added?: Procedure code (CPT) selection complete Assessment & Plan Assessment & Plan (1) Localized osteoarthritis of left knee: Code(s): M17.12 - Unilateral primary osteoarthritis, left knee Category: Medical Plan Patient is status post left knee PRP/A2M injection with arthrogram. Patient tolerated procedure well and was discharged home in stable condition with discharge instructions. All questions were answered. We will follow-up via telephone or in clinic to assess response to therapy. A follow-up appointment was made during today's visit. Orders: Orders FL guidance in treatment room 09/09/25 Carri Yan APRN, WASTE COLLECTION DRIVER M17.12 - Unilateral primary osteoarthritis, left knee AMB Platelet Rich Plasma (PRP) Injection 09/09/25 Jatin Farnsworth MD M17.12 - Unilateral primary osteoarthritis, left knee Coding Level of Care Code Procedure Only Diagnoses Localized osteoarthritis of left knee M17.12 CPT Codes XCELL Kit 60mL Filter ([id number])
[2025-09-09 13:16] VITALS: BP 117/77; PULSE 84; RESP 16; O2SAT 96
== END 2025-09-09 13:14 | disposition home or self-care (01) ==
LOC: HO.PMCPRC 12:13
PROVIDERS: PCP Family Medicine; Visit Provider Internal Medicine
DX: M17.12 Unilateral primary osteoarthritis, left knee (principal)
CPT/HCPCS: 0232T